=== PATIENT | female | born 1990 | race Caucasian/White ===

== ENCOUNTER → 2021-01-27 08:15 | Outpatient (BNVA) | payer OTHER, MEDICAID, SELFPAY | PROVIDERS: PCP Internal Medicine; Visit Provider Internal Medicine Gastroenterology ==

== ENCOUNTER 2021-01-28 15:30 | Outpatient (REF) | payer OTHER, SELFPAY ==
[2021-01-29 13:58] LABS: H Pylori Breath Test Negative (Negative)
== END 2021-01-28 15:31 | disposition home or self-care (01) ==
LOC: HO.LNP 15:30
PROVIDERS: Visit Provider Internal Medicine Gastroenterology
DX: Z11.0 Encounter for screening for intestinal infectious diseases (principal); K21.9 Gastro-esophageal reflux disease without esophagitis
CPT/HCPCS: 83013

== ENCOUNTER → 2021-01-30 10:16 | Outpatient (BNVA) | payer OTHER, MEDICAID, SELFPAY | PROVIDERS: Visit Provider Internal Medicine Gastroenterology ==

== ENCOUNTER 2021-02-04 11:58 | Outpatient (REF) | payer OTHER, MEDICAID, SELFPAY ==
[2021-02-04 12:34] LABS: MANUAL DIFF FLAG NO
[2021-02-04 12:38] LABS: Basophils Percent Auto 0.3 % (0-2); Eosinophils Absolute Auto 0.3 X10*3/uL (0.0-0.4); Eosinophils Percent Auto 4.5 % (0-4); Hematocrit 41.2 % (37-47); Hemoglobin 14.2 g/dl (12.0-16.0); Imm Gran Abs Auto 0.01 X10*3/uL (0.00-0.03); Imm Gran Pct Auto 0.2 % (0.0-0.4); Lymphocytes Absolute Auto 2.2 X10*3/uL (1.2-4.9); Lymphocytes Percent Auto 33.7 % (20-40); Mean Corpuscular HGB Conc 34.5 g/dl (31.0-35.0); Mean Corpuscular Hemoglobin 31.6 pg (27.0-33.0); Mean Corpuscular Volume 91.6 fL (80-98); Mean Platelet Volume 9.5 fL (9.4-12.3); Monocytes Absolute Auto 0.4 X10*3/uL (0.1-1.2); Neutrophils Absolute Auto 3.7 X10*3/uL (2.0-8.3); Neutrophils Percent Auto 55.3 % (45-73); Platelet Count 369 X10*3/uL (160-400); Red Cell Distribution Width 12.1 % (11.0-16.0); White Blood Count 6.6 X10*3/uL (4.8-10.8)
[2021-02-04 12:59] LABS: Alanine Aminotransferase 18 U/L (0-31); Albumin Level 4.5 g/dL (3.5-5.0); Alkaline Phosphatase 63 U/L (39-117); Anion Gap 12 (12-20); Aspartate Amino Transferase 15 U/L (5-31); Bilirubin Total 0.3 mg/dL (0.0-1.0); Blood Urea Nitrogen 14 mg/dL (9-16); Calcium 9.6 mg/dL (8.4-10.2); Carbon Dioxide 26 mmol/L (22-29); Chloride 105 mmol/L (96-108); Estimated Glomerular Filt Rate > 60; Glucose Random 91 mg/dL (60-115); Iron 55 mcg/dL (30-160); Percent Iron Saturation 13 % (15-50); Potassium 4.3 mmol/L (3.3-5.1); Sodium 139 mmol/L (135-145); Total Iron Binding Capacity 426 mcg/dL (228-428); Total Protein 7.3 g/dL (6.5-8.0); Unsaturated Iron Binding 371 ug/dL
[2021-02-04 13:20] LABS: Ferritin 27 ng/mL (10-122); TSH reflex Free T4 1.55 uIU/mL (0.32-4.0)
[2021-02-04 13:28] LABS: Vitamin B12 401 pg/mL (200-900)
== END 2021-02-04 11:59 | disposition home or self-care (01) ==
LOC: HO.LAB 11:58
PROVIDERS: Visit Provider Internal Medicine Gastroenterology
DX: K21.9 Gastro-esophageal reflux disease without esophagitis (principal); K62.5 Hemorrhage of anus and rectum; K75.81 Nonalcoholic steatohepatitis (NASH)
CPT/HCPCS: 36415; 80053; 82607; 82728; 82746; 83540; 84443; 85025

== ENCOUNTER 2021-02-12 07:01 | Day surgery (SDC) | payer OTHER, SELFPAY ==
--- NOTE | 2021-02-11 11:56 | HO.ANESPROP2 ---
Documented by User: Thea Hampton NP 02/11/21 12:05 HPI - Anesthesia Eval Consult details Narrative: 30yo F for ?Upper Endoscopy and Colonoscopy PMFSH Active Problems Active Problems: All Active Problems (Updated 01/30/21 @ 10:29 by Hellen Peña MD) Rectal bleeding (Acute) GERD (gastroesophageal reflux disease) (Acute) Past Medical History Medical History GERD (gastroesophageal reflux disease) Surgical History Surgical History S/P tonsillectomy Social History Social History Patient Tobacco Use Status: Never used Tobacco Use of substances other than those prescribed or required for medical reasons: No Are you DNR?: No Advance Directives: No Advance Directives Information Provided: Yes Meds Allergies Allergy/AdvReac Type Severity Reaction Status Date / Time sulfamethoxazole Allergy Unknown Unknown Verified 02/11/21 12:25 [From Bactrim] trimethoprim [From Bactrim] Allergy Unknown Unknown Verified 02/11/21 12:25 codeine AdvReac Vomiting Verified 02/11/21 12:25 Exam Exam Date and Time: February 11, 2021 1156 Pertinent Lab Results Pertinent Lab Results: Laboratory Tests 02/04/21 02/04/21 12:15 12:15 WBC 6.6 Hgb 14.2 Hct 41.2 Plt Count 369 Sodium 139 Potassium 4.3 Chloride 105 Carbon Dioxide 26 BUN 14 Creatinine 0.64 Assessment and Plan Assessment Anesthesia Assessment: Chart Reviewed Documented by User: Dhruv Mariscal MD 02/12/21 08:47 PMFSH Past Medical History Medical History GERD (gastroesophageal reflux disease) Family History Family history of problems with anesthesia: No Surgical History Surgical History S/P tonsillectomy History of Problems with Anesthesia: No Social History Social History Patient Tobacco Use Status: Never used Tobacco Use of substances other than those prescribed or required for medical reasons: No Are you DNR?: No Advance Directives: No Advance Directives Information Provided: Yes Meds Allergies Allergy/AdvReac Type Severity Reaction Status Date / Time sulfamethoxazole Allergy Unknown Unknown Verified 02/11/21 12:25 [From Bactrim] trimethoprim [From Bactrim] Allergy Unknown Unknown Verified 02/11/21 12:25 codeine AdvReac Vomiting Verified 02/11/21 12:25 Exam Airway Mallampati Class: I TM Dist: >3cm Neck ROM: Full Loose/Missing/Broken Teeth: No Assessment and Plan Assessment Anesthesia Assessment: Anesthesia Plan Discussed Final Anesthetic Review Family History of Problems with Anesthesia: No History of Problems with Anesthesia: No NPO: Yes ASA Class: II Final Preanesthetic Review: No Changes in Pt Med Stat, Meds/Allgs Chart Reviewed, Consent Obtained/Reviewed and Anes Risks/Benef Reviewed Patient Risk: Intermediate Procedure Risk: Low Anesthetic Plan Anesthetic Plan: MAC: Disposition: Standard PACU
[2021-02-12 07:24] LABS: UPreg QC Valid YES
[2021-02-12 07:25] LABS: Urine Pregnancy NEGATIVE (NEGATIVE)
[2021-02-12 07:30] VITALS: BP 116/83; PULSE 77; RESP 16; TEMP 36.6; O2SAT 98; BMI 38.1
[2021-02-12] MEDS: Lactated Ringers 1,000 ML 100 ML IVCONT (07:39)
--- NOTE | 2021-02-12 08:18 | MHC.SHP ---
Pre-Procedural Eval Section A Date of Service: 02/12/21 Section B Chief Complaint: reflux disease Relevant Family History (Specify if Yes): No Relevant Social History: None Present Medications: see Short Stay Collaborative assessment Medical History: Significant History History of Previous Operations: Relevant previous surgery/procedure and date(s) (tonisl removal) Allergies: Allergies Allergy/AdvReac Type Severity Reaction Status Date / Time sulfamethoxazole Allergy Unknown Unknown Verified 02/11/21 12:25 [From Bactrim] trimethoprim [From Bactrim] Allergy Unknown Unknown Verified 02/11/21 12:25 codeine AdvReac Vomiting Verified 02/11/21 12:25 Review of Systems Sugical H&P ROS: Negative: Constitution, Cardiovascular, Respiratory, Neurological, Psychiatric, Hem-Onc, Allergic/Immunologic, Gastrointestinal, Genitourinary, Musculoskeletal, Integumentary, Endocrine and Eyes/Ears/Nose/Throat Exam Surgical H&P Exam: Normal: HEENT, Normal: Heart, Normal: Lungs, Normal: Extremities, Normal: Abdomen, Normal: Skin and Normal: Neurological Plan Diagnosis/Plan: Unchanged I have reviewed the history and physical and performed a pertinent physical examination on my patient. No changes have occurred unless specified.
--- NOTE | 2021-02-12 08:19 | P.BOP_ITS ---
Brief Operative Note Date of Service: 02/12/21 Pre-op diagnosis: rectal bleeding, GERD Post-op diagnosis: same Surgeon: Hellen Peña MD Was an Timber Cruiser used for this Procedure?: No Estimated blood loss (mL): 5
--- NOTE | 2021-02-12 08:20 | W.PM.OPN ---
Operative Note Operative Note Date of Service: 02/12/21 Narrative: Operative Information Procedure Description: EGD, Colonoscopy FLEXIBLE TRANSORAL UPPER GASTROINTESTINAL ENDOSCOPY AND COLONOSCOPY PROCEDURE NOTE UPPER ENDOSCOPY Consent: Indications for the procedure and potential complications of bleeding, perforation, reaction to medications and missed diagnosis were discussed with the patient and informed consent was obtained. Instrument: Olympus GIF H 190 J mid size upper endoscope Monitoring: Vital signs and clinical assessment, continuous EKG monitoring, Pulse oximetry, Carbon Dioxide monitoring and blood pressure monitoring were done throughout the procedure. Procedure: The patient was placed in the left lateral decubitis position and pre-procedure medications were administered and a bite block was placed. The endoscope was inserted into the mouth and advanced under direct vision to the third part of duodenum. A careful inspection was made as the upper endoscope was withdrawn including a retroflexed examination of the proximal stomach; Findings and interventions are described below. Findings: Larynx:normal Esophagus: GE junction at 40 cm, diaphragm hiatus at 40 cm, boggy, edematous nodular appearing GEJ consistent with moderate severe LA grade A esophagitis with tongues of possible barretts esophagus. Their was trachealization of esophagus, bx taken from distal and proximal esophagus in separate jars as well as GEJ. Stomach: Normal mucosa. Biopsies were obtained. Grade 2 flap valve on retroflexed examination of the cardia. Duodenum: Normal bulb and descending duodenum, bx taken Intervention: Biopsies as noted above COLONOSCOPY Instrument: Olympus variable stiffness pediatric scope 190L Colonoscopy Monitoring: Vital signs and clinical assessment, continuous EKG monitoring, Pulse oximetry, Carbon Dioxide monitoring and blood pressure monitoring were done throughout the procedure. Colon withdrawal time was 8 minutes. Procedure: The patient was placed in the left lateral decubitis position and pre-procedure medications were administered. After a digital rectal examination of the ano-rectum, the video colonoscope was inserted into the rectum and advanced through the colon to the cecum/TI. The colonoscope was slowly withdrawn in a retrograde panoramic fashion and the colon mucosa was carefully examined including a retroflexed view of the rectum. Findings and interventions are described below. Procedure Difficulty:easy Findings: Terminal Ileum-normal Cecum:normal Ascending Colon: normal Transverse Colon -normal Descending Colon:normal Sigmoid Colon: normal Rectum: Retroflexion with small internal hemorrhoids, grade II Anorectum - small internal hemorrhoids seen on anterior view with some red bundy Colon preparation: [place] Bowel Preparation Scale Right colon; 3 Transverse colon: 3 Left colon; 3 (0 = Unprepared colon segment with mucosa not seen due to solid stool that cannot be cleared. 1 = Portion of mucosa of the colon segment seen, but other areas of the colon segment not well seen due to staining, residual stool and/or opaque liquid. 2 = Minor amount of residual staining, small fragments of stool and/or opaque liquid, but mucosa of colon segment seen well. 3 = Entire mucosa of colon segment seen well with no residual staining, small fragments of stool or opaque liquid) Impression and Post Procedure Diagnosis: Endoscopy Findings: esophagitis possible barretts esophagus Colonoscopy Findings: internal hemorrhoids Plan: Await Pathology results Repeat Colonoscopy aged 45 years or earlier if clinically indicated High fiber diet leaflet avoid straining at stool, epsom salts and sitz bath, anusol supps or cream high dose PPI for 3 months and repeat EGD to dcoument healing Above findings were reviewed with the patient and relevant handouts were provided if indicated.
[2021-02-12 09:00] VITALS: BP 116/77; PULSE 84; RESP 20; TEMP 36.7; O2SAT 99
[2021-02-12 09:15] VITALS: BP 124/80; PULSE 78; RESP 18; TEMP 36.7; O2SAT 96
== END 2021-02-12 09:47 | disposition home or self-care (01) ==
PROVIDERS: Nurse Practitioner; PCP Internal Medicine; Visit Provider Internal Medicine Gastroenterology
PROC: (CPT 45378; principal; 2021-02-12 08:00)
DX: K62.5 Hemorrhage of anus and rectum (principal); K64.1 Second degree hemorrhoids; K64.8 Other hemorrhoids; K21.00 Gastro-esophageal reflux disease with esophagitis, without bleeding; K29.80 Duodenitis without bleeding; D50.9 Iron deficiency anemia, unspecified
CPT/HCPCS: 45378; 43239; 81025; 88305; 88342

== ENCOUNTER 2021-03-17 13:35 | Outpatient (REF) | payer OTHER, SELFPAY ==
[2021-03-17 14:46] LABS: Iron 45 mcg/dL (30-160); Percent Iron Saturation 12 % (15-50); Total Iron Binding Capacity 380 mcg/dL (228-428); Unsaturated Iron Binding 335 ug/dL
[2021-03-17 15:18] LABS: Ferritin 36 ng/mL (10-122)
[2021-03-20 07:41] LABS: Zinc 65 mcg/dL (60-130)
== END 2021-03-17 13:36 | disposition home or self-care (01) ==
LOC: HO.LAB 13:35
PROVIDERS: Visit Provider Internal Medicine Gastroenterology
DX: E61.1 Iron deficiency (principal)
CPT/HCPCS: 36415; 82728; 83540; 84630

== ENCOUNTER 2021-11-26 15:07 | Outpatient (REF) | payer OTHER, SELFPAY ==
[2021-11-26 15:33] LABS: MANUAL DIFF FLAG NO
[2021-11-26 16:07] LABS: Basophils Percent Auto 0.4 % (0-2); Eosinophils Absolute Auto 0.1 X10*3/uL (0.0-0.4); Eosinophils Percent Auto 1.4 % (0-4); Hematocrit 39.3 % (37.0-47.0); Hemoglobin 13.3 g/dl (12.0-16.0); Imm Gran Abs Auto 0.04 X10*3/uL (0.00-0.03); Imm Gran Pct Auto 0.6 % (0.0-0.4); Lymphocytes Absolute Auto 2.3 X10*3/uL (1.2-4.9); Lymphocytes Percent Auto 32.5 % (20-40); Mean Corpuscular HGB Conc 33.8 g/dl (31.0-35.0); Mean Corpuscular Hemoglobin 30.2 pg (27.0-33.0); Mean Corpuscular Volume 89.3 fL (80.0-98.0); Mean Platelet Volume 9.8 fL (9.4-12.3); Monocytes Absolute Auto 0.5 X10*3/uL (0.1-1.2); Neutrophils Absolute Auto 4.1 x10*3/uL (2.0-8.3); Neutrophils Percent Auto 58.1 % (45-73); Platelet Count 400 X10*3/uL (160-400); Red Cell Distribution Width 13.2 % (11.0-16.0)
[2021-11-26 16:25] LABS: Alanine Aminotransferase 20 U/L (0-31); Albumin Level 4.8 g/dL (3.5-5.0); Alkaline Phosphatase 63 U/L (39-117); Anion Gap 16 (12-20); Aspartate Amino Transferase 17 U/L (5-31); Bilirubin Total 0.7 mg/dL (0.0-1.0); Blood Urea Nitrogen 11 mg/dL (9-16); Calcium 9.4 mg/dL (8.4-10.2); Carbon Dioxide 25 mmol/L (22-29); Chloride 103 mmol/L (96-108); Estimated Glomerular Filt Rate > 60; Glucose Random 99 mg/dL (60-115); Potassium 3.7 mmol/L (3.3-5.1); Sodium 140 mmol/L (135-145); Total Protein 7.7 g/dL (6.5-8.0)
[2021-11-26 16:29] LABS: Appearance Urine CLEAR; Color Urine YELLOW; Glucose Urine UA NEG (NEG); Leukocyte Esterase Urine NEG (NEG); Nitrite Urine NEG (NEG); PH 5.5 (5.0-8.0); Specific Gravity - Urine >= 1.030 (1.005-1.025); Urine Blood NEG (NEG); Urine Ketones 5 MG/DL (NEG); Urine Protein TRACE MG/DL (NEG-TRACE)
== END 2021-11-26 15:08 | disposition home or self-care (01) ==
LOC: HO.LAB 15:07
PROVIDERS: Visit Provider Internal Medicine Gastroenterology
DX: R30.0 Dysuria (principal); K75.81 Nonalcoholic steatohepatitis (NASH); K80.20 Calculus of gallbladder without cholecystitis without obstruction
CPT/HCPCS: 36415; 80053; 81003; 85025

== ENCOUNTER 2021-11-27 08:25 | Outpatient (REF) | payer OTHER, SELFPAY ==
--- NOTE | ~2021-11-27 | US_ITS ---
EXAMINATION: US ABDOMEN COMPLETE CLINICAL INFORMATION: Calculus of gallbladder without cholecystitis, abdominal pain, nausea. COMPARISON: None TECHNIQUE: Real-time imaging of the abdominal viscera. FINDINGS: PANCREAS: Normal. ABDOMINAL AORTA: The proximal, mid, and distal segments are normal in caliber. INFERIOR VENA CAVA: Visualized portions are normal. LIVER: Normal. The liver is normal in size. The liver contour is normal. Parenchymal echogenicity is normal. No focal hepatic lesion. There is no intrahepatic biliary duct dilatation seen. GALLBLADDER: Normal. The gallbladder is physiologically distended without evidence of stones, sludge, polyps, wall thickening or pericholecystic fluid. COMMON BILE DUCT: Normal in caliber measuring 0.3 cm in diameter. There is an fluid-filled structure adjacent to the gallbladder and neck of the pancreas in the region of the jefry without internal vascularity or soft tissue nodularity. While difficult to evaluate this does correspond with the expected region of the duodenum. RIGHT KIDNEY: Normal. No hydronephrosis. No renal calculi or focal parenchymal lesions. The kidney measures 11.8 cm in maximum dimension. LEFT KIDNEY: Normal. No hydronephrosis. No renal calculi or focal parenchymal lesions. The kidney measures 11.9 cm in maximum dimension. SPLEEN: Normal. The spleen measures 10.3 cm in maximum dimension. FREE FLUID: None. US/US abdomen complete IMPRESSION: Fluid-filled structure in the region of the jefry as noted above which is adjacent to portal structures, gallbladder, and the neck of the pancreas. While the structure is somewhat difficult to fully evaluate given the limitations of modality, I suspect this may relate to fluid within the duodenum or small amount of free fluid in the region of the jefry. Considerations could also include a duodenal diverticulum or other process. Further evaluation with upper GI series or cross-sectional imaging could be considered.
== END 2021-11-27 08:26 | disposition home or self-care (01) ==
LOC: HO.US 08:25
PROVIDERS: Visit Provider Internal Medicine Gastroenterology
DX: K80.20 Calculus of gallbladder without cholecystitis without obstruction (principal)
CPT/HCPCS: 76700

== ENCOUNTER 2022-04-30 12:53 | Outpatient (REF) | payer OTHER, SELFPAY ==
[2022-04-30 13:20] LABS: MANUAL DIFF FLAG NO
[2022-04-30 13:44] LABS: Basophils Percent Auto 0.4 % (0-2); Eosinophils Absolute Auto 0.3 X10*3/uL (0.0-0.4); Eosinophils Percent Auto 3.6 % (0-4); Hematocrit 39.8 % (37.0-47.0); Hemoglobin 13.3 g/dl (12.0-16.0); Imm Gran Abs Auto 0.02 X10*3/uL (0.00-0.03); Imm Gran Pct Auto 0.3 % (0.0-0.4); Lymphocytes Absolute Auto 2.4 X10*3/uL (1.2-4.9); Lymphocytes Percent Auto 33.1 % (20-40); Mean Corpuscular HGB Conc 33.4 g/dl (31.0-35.0); Mean Corpuscular Hemoglobin 30.6 pg (27.0-33.0); Mean Corpuscular Volume 91.7 fL (80.0-98.0); Mean Platelet Volume 9.6 fL (9.4-12.3); Monocytes Absolute Auto 0.4 X10*3/uL (0.1-1.2); Monocytes Percent Auto 4.8 % (2-11); Neutrophils Absolute Auto 4.2 x10*3/uL (2.0-8.3); Neutrophils Percent Auto 57.8 % (45-73); Platelet Count 359 X10*3/uL (160-400); Red Blood Count 4.34 X10*6/uL (4.20-5.50); Red Cell Distribution Width 13.1 % (11.0-16.0); White Blood Count 7.3 X10*3/uL (4.8-10.8)
[2022-04-30 14:22] LABS: Erythrocyte Sedimentation Rate 12 MM/HR (0-20)
[2022-04-30 14:29] LABS: Alanine Aminotransferase 20 U/L (0-31); Albumin Level 4.6 g/dL (3.5-5.0); Alkaline Phosphatase 61 U/L (39-117); Anion Gap 14 (12-20); Aspartate Amino Transferase 17 U/L (5-31); Bilirubin Total 0.6 mg/dL (0.0-1.0); Blood Urea Nitrogen 14 mg/dL (9-16); C Reactive Protein 0.22 mg/dL (< or = 0.50); Calcium 9.8 mg/dL (8.4-10.2); Carbon Dioxide 30 mmol/L (22-29); Chloride 101 mmol/L (96-108); Estimated Glomerular Filt Rate > 60; Ferritin 18 ng/mL (10-122); Glucose Random 117 mg/dL (60-115); Iron 53 mcg/dL (30-160); Magnesium 1.8 mg/dL (1.6-2.6); Percent Iron Saturation 14 % (15-50); Potassium 3.7 mmol/L (3.3-5.1); Sodium 141 mmol/L (135-145); TSH reflex Free T4 1.32 uIU/mL (0.32-4.0); Total Iron Binding Capacity 367 mcg/dL (228-428); Total Protein 7.3 g/dL (6.5-8.0); Unsaturated Iron Binding 314 ug/dL; Vitamin D 25-OH Total 10.1 ng/mL (>30)
[2022-04-30 14:53] LABS: Vitamin B12 334 pg/mL (200-900)
[2022-04-30 15:08] LABS: Folate 8.4 ng/mL (> or = 4.0)
[2022-05-04 10:34] LABS: Anti Nuclear Antibody Screen NEGATIVE (NEGATIVE)
[2022-05-04 17:58] LABS: Zinc 81 mcg/dL (60-130)
[2022-05-05 15:44] LABS: Vitamin C 1.1 mg/dL (0.3-2.7)
[2022-05-05 21:18] LABS: Alpha-Tocopherol 14.1 mg/L (5.7-19.9); Beta-Gamma Tocopherol 1.8 mg/L (<=4.3)
[2022-05-05 21:28] LABS: Vitamin A 44 mcg/dL (38-98)
[2022-05-05 23:09] LABS: Vitamin K1 1100 pg/mL (130-1500)
[2022-05-06 14:52] LABS: Vitamin B6 19.5 ng/mL (2.1-21.7)
[2022-05-06 15:37] LABS: Vitamin B1 13 nmol/L (8-30)
[2022-05-06 15:59] LABS: Nicotinamide 21 ng/mL; Vit B3 - Nicotinic Acid <20 ng/mL
[2022-05-06 22:57] LABS: Vitamin B5 (Pantothenic Acid) 49 ng/mL (<275)
== END 2022-04-30 12:54 | disposition home or self-care (01) ==
LOC: HO.LAB 12:53
PROVIDERS: Visit Provider Internal Medicine Gastroenterology
DX: K62.5 Hemorrhage of anus and rectum (principal); K75.81 Nonalcoholic steatohepatitis (NASH); R79.82 Elevated C-reactive protein (CRP); E61.1 Iron deficiency
CPT/HCPCS: 36415; 80053; 82180; 82306; 82607; 82728; 82746; 83540; 83735; 84207; 84425; 84443; 84446; 84590; 84591; 84597; 84630; 85025; 85652; 86038; 86039; 86140

== ENCOUNTER 2022-11-02 13:12 | Outpatient (REF) | payer OTHER, SELFPAY ==
[2022-11-03 04:09] LABS: Syphilis Screen Nonreactive (Nonreactive)
[2022-11-03 04:28] LABS: HBS Num1 82.76 mIU/mL (0-7.99); HBc Num1 0.18 S/CO (0.00-0.79); HBsAGNum1 0.43 S/CO (0.00-0.99); HIV AB/AG Nonreactive (Nonreactive); HIV Num 1 0.08 S/CO (0.00-0.99); Hepatitis A Antibody IgM 0.26 Index (0-0.79); Hepatitis B Core Antibody Nonreactive (Nonreactive); Hepatitis B Surface Antigen Negative (Negative); ~HepC Num1 0.09 S/CO (0.00-0.79); ~Hepatitis A Antibody IgM Nonreactive (Nonreactive); ~Hepatitis B Surface Antibody REACTIVE (Nonreactive); ~Hepatitis C Antibody Nonreactive (Nonreactive)
[2022-11-05 15:13] LABS: HIV RNA PCR Qn Copies NOT DETECTED copies/mL (NOT DETECTED); HIV RNA PCR Qn Log Copies NOT DETECTED (NOT DETECTED)
[2022-11-05 15:28] LABS: HCV Log PCR <1.18 NOT DETECTED Log IU/mL (NOT DETECTED); HepC Viral Load <15 NOT DETECTED IU/mL (NOT DETECTED)
== END 2022-11-02 13:13 | disposition home or self-care (01) ==
LOC: HO.LAB 13:12
PROVIDERS: Visit Provider Internal Medicine Gastroenterology
DX: A64 Unspecified sexually transmitted disease (principal)
CPT/HCPCS: 36415; 86704; 86706; 86709; 86780; 86803; 87340; 87389; 87522; 87536

== ENCOUNTER 2023-01-07 06:06 | Outpatient (REF) | payer OTHER, SELFPAY ==
[2023-01-07 09:17] LABS: Glucose Fasting 89 mg/dL (60-99)
[2023-01-07 10:57] LABS: Glucose 1 Hour 209 mg/dL
[2023-01-07 12:10] LABS: Glucose 2 Hour 156 mg/dL
[2023-01-07 14:39] LABS: Glucose 3 Hour 49 mg/dL
== END 2023-01-07 06:07 | disposition home or self-care (01) ==
LOC: HO.LAB 06:06
PROVIDERS: Advanced Practice Midwife; PCP Internal Medicine; Visit Provider Registered Nurse
DX: R73.09 Other abnormal glucose (principal)
CPT/HCPCS: 36415; 82951

== ENCOUNTER 2023-12-30 13:06 | Emergency (ER) | payer OTHER, SELFPAY ==
[2023-12-30] VITALS (7 sets, daily range): BP systolic 134–147; BP diastolic 91–99; PULSE 67–98; RESP 16–20; TEMP 36.1–36.8; O2SAT 97–99; BMI 36.5
--- NOTE | ~2023-12-30 | XR_ITS ---
EXAMINATION: XR HIP, RIGHT CLINICAL INFORMATION: Right hip pain COMPARISON: None available. TECHNIQUE: Two views of the right hip, frontal x-ray of the pelvis. FINDINGS: BONES: Bony structures are intact. There is no focal bone destruction or periosteal reaction seen. JOINTS: Alignment of hip joint is normal. SOFT TISSUE: Soft tissue is normal. No radiopaque foreign body or abnormal air collection is seen. XR/XR hip RT w [id number] IMPRESSION: 1. Normal pelvis x-ray. No fracture or dislocation is seen. 2. Normal x-ray of right hip. No fracture or dislocation or signs of avascular necrosis are seen.
--- NOTE | 2023-12-30 13:27 | ED_ITS ---
HPI - Extremity Injury (Lower) General Chief Complaint: Extremity Problem Stated Complaint: Hip pain Time Seen by Provider: 12/30/23 16:15 Source: patient and RN notes reviewed Mode of arrival: ambulatory Limitations: no limitations History of Present Illness ED Provider: Vickie Castaneda PA-C HPI Narrative: This is a 33-year-old female who presents emergency department with complaints of right-sided hip pain x2 weeks. Patient denies any recent trauma or injury. She states that her pain has worsened over the last 2 weeks. She states that her symptoms are intermittent in nature, however pain became much more severe. She tried naproxen as well as diclofenac without any relief. She states that the pain radiates down into her buttock and into her groin. Denies any urinary bowel incontinence or retention. No saddle anesthesia. Pain worsens with positional changes. No fevers or chills. No abdominal pain, nausea, vomiting or diarrhea. No chest pain. No other complaints or concerns at this time. Onset (ago): week(s) Severity: severe Relieving factors: nothing Exacerbating factors: movement Other symptoms: none Related Data Previous Rx's ?Medication ?Instructions ?Recorded bisacodyl 5 mg tablet,delayed 10 mg (2 x 5 mg) PO ONCE 1 day #2 01/30/21 release (Dulcolax (bisacodyl)) tabs sodium,potassium,mag sulfates 17.5 See Rx Instructions PO .COMPLEX 01/30/21 gram-3.13 gram-1.6 gram oral soln #354 mL (Suprep Bowel Prep Kit) amoxicillin 500 mg capsule 500 mg PO TID #21 caps 05/26/22 omeprazole 40 mg capsule,delayed 40 mg PO BID #90 caps 09/07/22 release cyclobenzaprine 10 mg tablet 10 mg PO BEDTIME PRN muscle spasm 12/30/23 #7 tabs hydromorphone 2 mg tablet 2 mg PO Q6H PRN pain #10 tabs 12/30/23 ketorolac 10 mg tablet 10 mg PO TID PRN pain 5 days #15 12/30/23 tabs lidocaine 5 % topical patch 1 patch topical DAILY PRN pain #15 12/30/23 ea Allergies Allergy/AdvReac Type Severity Reaction Status Date / Time sulfamethoxazole Allergy Unknown Unknown Verified 12/30/23 13:32 [From Bactrim] trimethoprim [From Bactrim] Allergy Unknown Unknown Verified 12/30/23 13:32 codeine AdvReac Vomiting Verified 12/30/23 13:32 Review of Systems Review of Systems: Yes all other systems are reviewed and are negative Constitutional: Constitutional: Reports as per [facility] Past Medical History Medical History GERD (gastroesophageal reflux disease) Surgical History S/P tonsillectomy Social History Social History Patient Tobacco Use Status: Never used Tobacco Smoked in Last 30 Days: No Use of substances other than those prescribed or required for medical reasons: No Advance Directives: No Advance Directives Information Provided: No Do you have a plan to hurt others: No Plan Patient : No Physical Exam Vital Signs: Vital Signs: Last Vital Signs Temp 98.3 F 12/30/23 22:46 Pulse 84 12/30/23 22:46 Resp 16 12/30/23 22:46 BP 144/99 H 12/30/23 22:46 Pulse Ox 97 12/30/23 22:46 O2 Del Method Room Air 12/30/23 22:46 BMI result Body Mass Index 36.5 Const: General: cooperative, comfortable and no acute distress Orientation/consciousness: patient oriented x3 Limitations: no limitations HEENT: Head: Yes normal to inspection, Yes normocephalic and Yes atraumatic Ears: hearing grossly normal bilaterally General nose exam: Normal external nose present Face and sinus: Yes normal facial exam Mouth: Normal oral and palatal mucosa present, oropharynx normal and moist mucous membranes Throat: Yes posterior oropharynx normal Eyes: General: appearance normal, both eyes and all related structures Eyelids: Yes eyelids normal Conjunctivae: conjunctivae normal Sclerae: sclerae normal Pupils: Equal, round and reactive pupils present EOM: EOMs intact bilaterally Neck: Neck: Yes normal visual inspection, Yes full ROM and Yes no lymphade nopathy Lymphatic: no lymphadenopathy noted Chest: Chest palpation & inspection: normal inspection of the chest Resp: Effort & Inspection: normal respiratory effort and able to speak in complete sentences Auscultation: clear to auscultation bilaterally, no crackles, no rales, no rhonchi and no wheezes Cardio: Rate: regular rate Rhythm: regular rhythm Heart sounds: S1 normal heart sound present and S2 normal heart sound present GI: Inspection: Yes normal to inspection Back/Spine/Pelvis: Other: No midline spine tenderness, patient has tenderness palpation along the right buttock and right SI joint. Strength 5/5 in lower extremities. DTR 2+ Skin: General skin exam: no rashes or lesions noted Trauma: no lacerations or abrasions Wounds: no wounds Neuro: General: patient oriented x3 and moves all extremities Cranial nerves: Yes Equal, round and reactive pupils present Extrem: General: Yes normal to inspection Right upper extremity: normal to inspection Left upper extremity: normal to inspection Right lower extremity: normal to inspection Left lower extremity: normal to inspection Course Course Course Narrative: This is a Rapid Medical Exam performed in triage by oSo Ventura PA-C. Full HPI, ROS and PE to be performed by primary ED provider. 33 year-old F w/PMHx GERD, sciatica, presenting to the ED c/o right hip pain x 1 mos worsening since last night. Admits needed 2 blood patches after having her daughter in May (last 05/26) & this pain feels similar. denies injury, fall, urinary sx PE: uncomfortable, limping gait, +reproducible R hip/low back ttp. no rash/erythema Plan: XR, UA Reevaluation(s) Reevaluation #1: Patient tearful, reporting that pain does not any better, patient will be medicated with morphine 4 mg IV. We will continue to closely monitor. Time: 18:23 Reevaluation #2: Patient re-evaluated, feeling better however still endorsing pain, patient medicated with Lidoderm patch. Sign out given to my colleague, Rashad Claros PA-C pending re-evaluation. Time: 19:16 Reevaluation #3: Patient was still in a lot of pain Dilaudid ordered. She tried to get up and still in pain. Patients pain is clearly precipitated by movement and improved by rest. Supporting MSK dx. I do not suspect acute torsion, or NV compromise or threat to limb . No signs of cord compressions Time: 22:32 Medications Administered Discontinued Medications Generic Name Dose Route Start Last Admin Trade Name Jake PRN Reason Stop Dose Admin Diazepam 2 mg 12/30/23 16:27 12/30/23 16:33 Diazepam 2 Mg Tablet PO 12/30/23 16:28 2 mg ONCE ONE Administration Hydromorphone HCl 2 mg 12/30/23 21:45 12/30/23 21:53 Hydromorphone Hcl 2 Mg Tablet PO 12/30/23 21:46 2 mg ONCE ONE Administration Ketorolac Tromethamine 30 mg 12/30/23 16:27 12/30/23 16:34 Ketorolac Tromethamine 30 Mg/Ml Vial IM 12/30/23 16:28 30 mg ONCE ONE Administration Lidocaine 1 patch 12/30/23 18:39 12/30/23 18:43 Lidocaine 4 % Patch Adh..Patch TRANSDERMA 12/30/23 18:40 1 patch ONCE ONE Administration Protocol Morphine Sulfate 4 mg 12/30/23 18:02 12/30/23 18:20 Morphine Sulfate 4 Mg/Ml Cartridge IVPUSH 12/30/23 18:03 4 mg ONCE ONE Administration Protocol Medical Decision Making Medical Decision Making [facility] Narrative: This is a 33-year-old female who presents emergency department with complaints of right-sided hip pain and buttock pain ongoing for the last 2 weeks, worsening today. No injury or trauma. No fevers or chills. This patient presents with back pain most consistent with lumbar radiculopathy. Differential diagnoses includes lumbago versus musculoskeletal spasm / strain versus sciatica. No back pain red flags on history or physical. Presentation not consistent with malignancy (lack of history of malignancy, lack of B symptoms), fracture (no trauma, no bony tenderness to palpation), cauda equina syndrome (no bowel or urinary incontinence/retention, no saddle anesthesia, no distal weakness), pyelonephritis (afebrile, no CVAT, no urinary symptoms). Prior to my assessment, urine analysis was obtained, she has no evidence of urinary tract in fection. Have been pelvis x-ray was ordered, which was normal. Will medicate with Valium and 30 mg IM Toradol. Differential Diagnosis Differential Diagnoses: The differential diagnosis associated with the presentation includes See above Admission/Observation Consideration of admission/observation: Escalation of care including admission/observation considered Escalation of care including admission/observation considered however given workup today not warranted at this time. Lab Data [facility] Lab Attestation statement: I reviewed the patient's lab results. Labs: Lab Results 12/30/23 Range/Units 13:41 Urine Color Yellow Urine Appearance Clear Urine pH 6.0 (5.0-9.0) Ur Specific [place] >= 1.030 H (1.005-1.025) Urine Protein 30 (1+) H (Neg-Trace) mg/dL Urine Glucose (UA) Negative (Negative) mg/dL Urine Ketones Trace (Negative) mg/dL Urine Blood Negative (Negative) Urine Nitrite Negative (Negative) Ur Leukocyte Esterase Negative (Negative) Urine RBC 0-2 (0-2) /HPF Urine WBC 6-10 H (0-5) /HPF Ur Squamous Epith Cells 3-5 (0-2) /HPF Urine Bacteria None Seen (None Seen) Hyaline Casts 0-2 (0-2) /LPF Urine Test NEGATIVE (NEGATIVE) Radiology Impression Discussion of test interpretation with radiology: I have reviewed the radiologist's reading. External Record Review External record reviewed: Inpatient record, Office record, Outpatient record, Prior outpatient labs, Prior outpatient radiology, Primary care record and Outside ED record Critical Care Time Critical Care Time Critical Care Time: Yes Total Critical Care Time: 35 Attestation: I attest to this time spent taking care of the patient, obtaining history, physical, reviewing labs, imaging, speaking to my attending, specialist or hospitalist. Discharge Plan Discharge Clinical Impression: Lumbar radiculopathy Patient Disposition: Home, Self-Care Instructions: Lumbar Radiculopathy (ED), Lower Back Exercises (ED) Additional Instructions: You were seen in the emergency department due to low back pain. Your x-rays were unremarkable. Please rest, ice or apply heat, alternate between ibuprofen and Tylenol as need ed for pain. Take prescribed medication as directed. If any new or worsening symptoms occur including but not limited to urinary or bowel retention or incontinence, weakness in her lower extremities, numbness and tingling into your groin, please immediately seek emergent care. A narcotic has been sent to your pharmacy please take this as prescribed. Do not take more than the prescribed dose. Narcotic medications can cause addiction. Please do not mix them with alcohol. Do not take them while driving or operating machinery. Do not take them with any other narcotics. Do not share them with friends or family. They can cause constipation. Take them only for severe pain. Cyclobenzaprine is a muscle relaxer it is strong and can make you drowsy. Do not take with sedatives or any other muscle relaxers or alcohol. Do not drive or operate machinery while taking this. Do not share this medication with anyone. Toradol has been sent to your pharmacy, you tolerated this well in the de partment. Please take this as prescribed do not take this with ibuprofen, or other NSAIDs, do not mix this with alcohol. Side effects of this medication including increased risk for bleeding and possible kidney injury. Prescriptions: New hydromorphone 2 mg tablet 2 mg PO Q6H PRN (Reason: pain) Qty: 10 0RF Rx Instructions: Partial Fill upon patient request. cyclobenzaprine 10 mg tablet 10 mg PO BEDTIME PRN (Reason: muscle spasm) Qty: 7 0RF ketorolac 10 mg tablet 10 mg PO TID PRN (Reason: pain) 5 Days Qty: 15 0RF lidocaine 5 % adhesive patch,medicated 1 patch topical DAILY PRN (Reason: pain) Qty: 15 0RF Rx Instructions: leave on most painful area for up to 12 hrs No Action bisacodyl [Dulcolax (bisacodyl)] 5 mg tablet,delayed release (DR/EC) 10 mg PO ONCE 1 Days Qty: 2 0RF Rx Instructions: take orally as directed prior to colonoscopy amoxicillin 500 mg capsule 500 mg PO TID Qty: 21 0RF omeprazole 40 mg capsule,delayed release(DR/EC) 40 mg PO BID Qty: 90 2RF Suprep Bowel Prep Kit 17.5-3.13-1.6 gram recon soln See Rx Instructions PO .COMPLEX Qty: 354 0RF Rx Instructions: DILUTE; Referrals: [facility] [Provider Group] - 2 days Physician,None [Primary Care Provider] - 2 days Stand Alone Forms: Work/School Release Interventions: ED Discharge Assessment Last Done: 12/30/23 22:46 Discharge Date/Time: 12/30/23 22:47 Print Language: Ghanaian
[2023-12-30 13:49] LABS: Appearance Urine Clear; Color Urine Yellow; Glucose Urine UA Negative (Negative); Leukocyte Esterase Urine Negative (Negative); Nitrite Urine Negative (Negative); Specific Gravity - Urine >= 1.030 (1.005-1.025); UMIC TRIGGER UACC YES; Urine Blood Negative (Negative); Urine Ketones Trace mg/dL (Negative); Urine Protein 30 (1+) mg/dL (Neg-Trace)
[2023-12-30 13:51] LABS: Bacteria Urine None Seen (None Seen); Hyaline Casts Urine 0-2 /LPF (0-2); RBC Urine 0-2 /HPF (0-2); UACC Culture Trigger YES; UPreg QC Valid YES; Urine Pregnancy NEGATIVE (NEGATIVE)
[2023-12-30] MEDS: diazePAM 2 MG TABLET PO (16:33)
[2023-12-30] MEDS: Ketorolac Tromethamine 30 MG/ML VIAL IM (16:34)
[2023-12-30] MEDS: Morphine Sulfate 4 MG/ML CARTRIDGE IVPUSH (18:20)
[2023-12-30] MEDS: Lidocaine 4 % Patch ADH..PATCH 1 PATCH TRANSDERMA (18:43)
--- NOTE | 2023-12-30 20:53 | PC.NURSE ---
pt initially reporting some improvement in pain after morphine, however pain returned shortly after to a 10/10. provider aware.
[2023-12-30] MEDS: HYDROmorphone HCl 2 MG TABLET PO (21:53)
== END 2023-12-30 22:47 | disposition home or self-care (01) ==
PROVIDERS: Physician Assistant; Emergency Provider Emergency Medicine
DX: M54.16 Radiculopathy, lumbar region (principal); M54.50 Low back pain, unspecified
CPT/HCPCS: 73502; 81001; 81025; 87086; 96372; 96374; 99284; J1885; J2270

== ENCOUNTER 2024-01-29 09:10 | Outpatient (REF) | payer OTHER, SELFPAY ==
--- NOTE | ~2024-01-29 | MR_ITS ---
EXAMINATION: MR HIP WITHOUT CONTRAST, LEFT CLINICAL INFORMATION: Left hip pain, throbbing, stabbing. Increasing throughout the day. Tenderness. Evaluate for bursitis. COMPARISON: None available. TECHNIQUE: MRI of the left hip was obtained using routine sequences on a high-field magnet. FINDINGS: ACETABULAR LABRUM: No displaced labral tear. ARTICULAR CARTILAGE/BONE: Intact articular cartilage. No marrow edema or evidence of osseous injury. No stress reaction, fracture, or avascular necrosis. No concerning lytic or blastic osseous lesion. The acetabular depth is within normal limits. MUSCLES/TENDONS: Minimal gluteus medius and gluteus minimus tendinosis. No tendon tear or tendon retraction. JOINT FLUID/BURSA: Trace fluid and edema within the greater trochanteric bursa, consistent with mild bursitis. No joint effusion. INTRAPELVIC STRUCTURES: Unremarkable. MR/MR hip LT wo con IMPRESSION: 1. Mild greater trochanteric bursitis. 2. Minimal gluteus medius and gluteus minimus tendinosis without a measurable tendon tear. 3. No acute osseous abnormality. No stress reaction, fracture, or avascular necrosis. Electronically signed by: Preston Sharp MD 01/31/2024 09:38 AM EDT
--- NOTE | ~2024-01-29 | MR_ITS ---
EXAMINATION: MR HIP WITHOUT CONTRAST, RIGHT CLINICAL INFORMATION: Pain in the right hip. COMPARISON: X-ray of the right hip and pelvis December 2023. TECHNIQUE: MRI of the right hip was obtained using routine sequences on a high-field strength magnet. FINDINGS: BONES/CARTILAGE: Right Hip Joint: Articular Cartilage and Marrow: Normal. No bony excrescence or cystic change at the femoral head-neck junction. No effusion. Limited views of the bony pelvis. Remaining bone and joints are unremarkable. LABRUM/CAPSULE: There is a slightly lobulated paralabral cyst abutting the posterior labrum as seen on axial image 17 series 9. There is a tiny focus of increased signal within the periphery of the labrum. Findings most compatible with a nondisplaced labral tear with associated paralabral cyst. The cyst measures 13 mm transverse, 7 mm AP, and 12 mm craniocaudal. The remaining portions of the labrum are unremarkable. MUSCLE/TENDONS: Normal. BURSA: Normal. NEUROVASCULAR STRUCTURES: Normal. SUBCUTANEOUS SOFT TISSUES: Normal. LYMPH NODES: Normal. MISCELLANEOUS: Intrapelvic viscera and soft tissues are normal. MR/MR hip RT wo con IMPRESSION: Nondisplaced tear of the posterior labrum with associated paralabral cyst. Electronically signed by: Kaiser Peña MD 01/31/2024 11:12 AM EDT
== END 2024-01-29 09:11 | disposition home or self-care (01) ==
LOC: HO.MRI 09:10
PROVIDERS: Visit Provider Internal Medicine Gastroenterology
DX: M25.551 Pain in right hip (principal); M25.562 Pain in left knee
CPT/HCPCS: 73721

== ENCOUNTER 2025-02-13 10:38 | Outpatient (AMB) | payer OTHER, SELFPAY ==
--- OUTSIDE RECORDS SUMMARY | 2025-02-12 15:15 | XMS_ITS | Encounter Summary ---
Author Organization [facility] Address [address] [place] [address] Care Team Providers Care Professor Of Archaeology Name Role Phone Ayo Ndiaye MD Primary Care Pr [facility] Reason for Visit * Reason Comments Routine Visit Encounter Details Date Type Department Care Team ([facility] st Contact Info) Description 02/12/2025 3:15 PM EDT Routine Obstetrics and Gynecology - [address] [phone] Dianne Mascorro, [facility] [address] [place], [place] Encounter for supervision of other normal in third trimester (Primary Dx); 33 weeks gestation of ; Obesity in ; Anemia during ; Marginal insertion of umbilical cord affecting management of mother; History of diet controlled gestational diabetes mellitus (GDM) Social History Tobacco Use Types Packs/Day Years Used Date Smoking Tobacco: Never Smokeless Tobacco: Never Alcohol Use Standard Drinks/Week Comments No 0 (1 standard drink = 0.6 oz pur e alcohol) Housing Instability Answer Date Recorde d Are you worried that in the next 2 months you may not have stable housing? No 11/08/2024 Food Access & Nutrition Answer Date Rec orded Do you have access to a vari ety of food including fruits and vegetables? Yes 11/08/2024 Access to Healthcare Answer Date Record ed Within the last 3 months, ho w many times did you visit the emergency department for your medical care? 0 11/08/2024 Health Literacy Answer Date Recorded How often do you need to hav e someone help you when you read instructions, pamphlets, or other written material from your doctor or pharmacy? Never 11/08/2024 Caregiver: How often do you need to have someone help you when you read instructions, pamphlets, or other written material from your doctor or pharmacy? Not on file 11/08/2024 Financial Risk Answer Date Recorded How hard is it for you to pa y for the very basics like food, housing, medical care, and air conditioning / heating? Somewhat hard 11/08/2024 Transportation Answer Date Recorded Has the lack of transportati on kept you from meetings, work, or from getting things needed for daily living? No Has the lack of transportati on kept you from medical appointments or from getting medications? No 11/08/2024 Social Isolation Answer Date Recorded How often do you feel lonely or isolated from th ose around you? Rarely 11/08/2024 Food Risk Answer Date Recorded Within the past 12 months we worried whether our food would run out before we got money to buy more. Never true 11/08/2024 Within the past 12 months th e food we bought just didn't last and we didn't have money to get more. Never true 11/08/2024 Dependent Care Answer Date Recorded Do you need help finding or paying for care for your loved ones. For example, children librarian or elderly care for an older adult? Patient declined 11/08/2024 Education Answer Date Recorded Do you think completing more education or training, like finishing a GED, going to college, or learning a trade, would be helpful for you? N/A 11/08/2024 Employment and Income Answer Date Recor ded During the last four weeks, have you been actively looking for work? No 11/08/2024 Living Situation Answer Date Recorded What is your living situation? Unrecognized valu e 11/08/2024 Estimated Date of Delivery Comme nts Yes 03/30/2025 Based on Ultraso und Sex and Gender Information Value Date Recorded Sex Assigned at Not on file Legal Sex Female 12:07 PM EST Gender Identity Not on file Sexual Orientation Not on file documented as of this encounter Last Filed Vital Signs Vital Sign Reading Time Taken Comments Blood Pressure 134/84 02/12/2025 3:07 PM EDT Pulse - - Temperature - - Respiratory Rate - - Oxygen Saturation - - Inhaled Oxygen Concentration - - Weight 109 kg (240 lb) 02/12/2025 3:07 PM EDT Height - - Body Mass Index 39.94 11/13/2024 1:25 PM EDT documented in this encounter Progress Notes * Dianne Mascorro CNM - 02/12/2025 3:15 PM EDT OB Visit: Vitals BP: 134/84 Weight: 109 kg (240 lb) Assessment Heart Rate: 140 Fundal Height (cm): 32 cm Movement: Present Presentation: Cephalic Vaginal Drainage Leaking Fluid: No 34 y.o. old female at 33w3d. Doing well. Appropriate FM. No LOF/VB/ctx. Taking PNV. Her only new concern is none. Had normal growth and fluid at 32 week US, results reviewed with pt today. 28 week labs reviewed, anemia in preg- taking iron. Otherwise healthy . Her BP is reviewed and is Normal. Signs and symptoms of labor reviewed including reasons to call triage. The patient does not require anesthesia consult. Problem List reviewed and updated. RTO 2 weeks. Dianne Mascorro CNM on 02/12/2025 at 3:35 PM EDT documented in this encounter Plan of Treatment Upcoming Encounters Date Type Department Care Team (Late st Contact Info) Description 02/27/2025 3:00 PM EDT Routine Obstetrics & Gynecology - [address] [phone] Dianne Mascorro CNM [address] [place] [address] 03/07/2025 3:30 PM EDT Routine Obstetrics and Gynecology - [address] [phone] Cherelle Shipman CNM [address] [place] [phone] 03/14/2025 3:30 PM EDT Routine Obstetrics & Gynecology - [address] [phone] Anrdea Chin, [facility] [address] [place] [address] 03/21/2025 3:30 PM EST Routine Obstetrics & Gynecology - [address] [phone] Andrea Chin, [facility] [address] [place] [address] 03/28/2025 3:30 PM EST Routine Obstetrics and Gynecology - [address] [phone] Cherelle Shipman [address] documented as of this encounter Visit Diagnoses Diagnosis Encounter for supervision of other normal in third trimester- Primary 33 weeks gestation of Obesity in Obesity complicating , childbirth, or the puerperium, unspecified as to episode of care or not applicable Anemia during Anemia, antepartum Marginal insertion of umbilical cord affecting management of mother History of diet controlled gestational diabetes mellitus (GDM) documented in this encounter Additional Health Concerns Assessment Noted Time PHQ-9 Depression Total Score: 0 12/25/19 10:20 AM EDT documented as of this encounter Care Teams Professor Of Archaeology Relationship Specialty Start Date End Date Ayo Ndiaye MD [address] [place] [address] PCP - General Internal Medicine 01/28/25 documented as of this encounter
--- NOTE | 2025-02-13 10:40 | A.OFFVIS_ITS ---
Intake Visit Reasons: gerd Allergies sulfamethoxazole (From Bactrim) Allergy (Unknown, Verified 02/13/25 10:40) Unknown trimethoprim (From Bactrim) Allergy (Unknown, Verified 02/13/25 10:40) Unknown codeine Adverse Reaction (Verified 02/13/25 10:40) Vomiting HPI HPI gerd: Details: 34 yr old f being seen for f/u She had EGD and colo for GERD and constipation 2020 she has been taking PPI since then due to active esophagitis and possible EoE which helps she is about 35 weeks and GERD is controlled with the PPI constipation is worse with but controlled with miralax she denies dysphagia no rectal bleeding EXAM: GENERAL: The patient is well developed and nontoxic. VITAL SIGNS:see workflow HEENT: Nonicteric sclerae, PERRLA, EOMI. Oropharynx clear. Moist mucous membranes. Conjunctivae appear well perfused. No thyroid mass. CHEST: Chest wall is nontender. HEART: Regular rate and rhythm without murmurs. LUNGS: Clear to auscultation bilaterally. ABDOMEN: Soft, positive bowel sounds, nontender, no organomegaly.no flank tenderness--distended consistent with SKIN: No rash, no excessive bruising, petechiae, or purpura. NEUROLOGIC: Cranial nerves II-XII intact without motor/sensory deficit. Psych: normal affect A/P: 1/ GERD, possible EoE controlled with PPI 2/ constipation, colonoscopy before was reassuring PLAN: 1/ cont with PPI, take MV daily as well 2/ can use miralax daily if needed, increase fiber and fluid intake 3/ [place] paperwork also filled out [facility] Medical History GERD (gastroesophageal reflux disease) Surgical History S/P tonsillectomy Social History Patient Tobacco Use Status: Never used Tobacco Assessment & Plan Assessment & Plan (1) GERD (gastroesophageal reflux disease): Code(s): K21.9 - Gastro-esophageal reflux disease without esophagitis Category: Medical Plan: as above Coding Level of Care Code Est Pt Level 3 (75698) Diagnoses GERD (gastroesophageal reflux disease) K21.9
--- OUTSIDE RECORDS SUMMARY | 2025-02-13 12:13 | XMS_ITS | Clinical Summary ---
Author Organization [facility] [address] [facility] Address [address] [facility] [place] [phone] Phone Care Team Providers Care Medical Sonographer Name Role Phone Ayo Ndiaye MD Primary Care Pr ovider Allergies Active Allergy Reactions Criticality Noted Date Comments Codeine Nausea And Vomiting Medium 02/07/2017 Sulfamethoxazole-Trimethoprim Nausea And Vomiting Medium 02/07/2017 Medications omeprazole (PriLOSEC) [address] capsule Take 40 mg by mouth 2 Times Daily. Active vit no.[id number] c ( Plus Vitamin-Mineral) 27 mg iron- 1 mg tabletIndication s:Missed menses Take 1 tablet by mouth 1 (one) time each day. 90 tablet 3 11/08/2024 Active ferrous sulfate 325 mg (65 mg elemental iron) tablet Take 1 tablet (325 mg total) by mouth every other day. 60 tablet 2 01/30/2025 Active Active Problems Problem Noted Date Diagnosed Date Anemia during 02/12/2025 Overview (02/12/2025): Taking iron Marginal insertion of umbili alf cord affecting management of mother 12/27/2024 Overview (02/12/2025): 32 week growth scan 02/04- 48%tile, normal fluid, F/U PRN History of diet controlled g estational diabetes mellitus (GDM) 11/08/2024 Overview (02/12/2025): Early GTT- WNL Repeat at 28 weeks- WNL Assessment & Plan (11/08/2024 2:30 PM EDT): 2023 Encounter for supervision of other normal , first trimester 11/08/2024 Overview (02/12/2025): 1. [facility] site: [facility]: [address] [place] [address] ([phone]) and [facility]: [address] [place] [address] ([phone]) 2. Delivery site: [facility] 3. Mobile Mommas: No 4. Dating criteria: LMP 5. Blood type: O-Positive 6. Genetic screening: Date: Result: Panorama: Declined Horizon: Declined Nuchal: Scheduled Survey: WNL MSAFP: 6. GBS: Date: 7. FOB name: Rajeev Palencia 8. Plans A. Epidural or other pain management - none B. Labor support identified - Rajeev Palencia C. Tdap - Date:03/08/2023 Flu - Date: D. Breast or Bottle feed: E. Baby's name - F. Circumcision - yes 9. Hospital Course: Obesity complicating childbirth 11/08/2024 Overview (01/29/2025): BMI- 39 HgbA1C and 1 hour GTT at initial labs ASA 162mg at 12 weeks until delivery Detailed anatomy ultrasound Repeat GTT 24-28 weeks if early is normal Pre-preg BMI 35-39.9: NST weekly at 37 weeks Pre-preg BMI >40: NST weekly at 34 weeks Pre-preg BMI >45: NST weekly at 32 weeks Growth US at 32 and 36 weeks for BMI >40 BMI of 50 by 28wks transfer to [facility] DVT prophylaxis- Lovenox if CS and BMI >35 Gastroesophageal reflux dise ase with esophagitis without hemorrhage 03/27/2021 Anxiety about health 09/28/2019 Estimated Date of Delivery Comme nts Yes 03/30/2025 Based on Ultraso und Encounters Date Type Department Care Team Description 02/12/2025 3:15 PM EDT Routine Obstetrics and Gynecology - [address] [phone] Dianne Mascorro CNM Encounter for supervision of other normal in third trimester (Primary Dx); 33 weeks gestation of ; Obesity in ; Anemia during ; Marginal insertion of umbilical cord affecting management of mother; History of diet controlled gestational diabetes mellitus (GDM) 02/05/2025 Telephone Obstetrics and Gynecology - [address] [phone] Cherelle Shipman CNM 02/04/2025 3:00 PM EDT Ancillary Procedure Maternal Medicine - [address] [phone] Marginal insertion of umbilical cord affecting management of mother in second trimester; Obesity affecting in second trimester; Other obesity due to excess calories affecting in second trimester 01/29/2025 3:30 PM EDT Routine Obstetrics and Gynecology - [address] [phone] Dianne Mascorro CNM Supervision of other normal , antepartum (Primary Dx); Marginal insertion of umbilical cord affecting management of mother; 31 weeks gestation of ; Obesity during ; History of diet controlled gestational diabetes mellitus (GDM) 12/31/2024 2:00 PM EDT Routine Obstetrics & Gynecology - [address] [phone] Andrea Chin CNM Encounter for supervision of other normal in second trimester (Primary Dx); 27 weeks gestation of 12/26/2024 3:00 PM EDT Ancillary Procedure Maternal Medicine - [address] [phone] Obesity affecting in second trimester; Encounter for screening for malformations; Encounter for screening for uncertain dates; Other obesity due to excess calories affecting in second trimester; Marginal insertion of umbilical cord affecting management of mother in second trimester 11/28/2024 3:15 PM EDT Initial Obstetrics and Gynecology - [address] [phone] Andrea Chin CNM 11/26/2024 9:00 AM EDT Ancillary Procedure Maternal Medicine - [place] [id number] [place], [place] [phone] Encounter for screening for nuchal translucency; Encounter for screening for malformations; Encounter for supervision of other normal , first trimester; Obesity affecting in second trimester; Other obesity due to excess calories affecting in second trimester 11/15/2024 Telephone Obstetrics and Gynecology - [address] [phone] Cherelle Shipman CNM 11/13/2024 1:30 PM EDT Clinical Support Obstetrics and Gynecology - [facility] [address] [place] [phone] Encounter for screening for nuchal translucency (Primary Dx); Encounter for screening for malformations; Encounter for screening of mother; Encounter for supervision of other normal , first trimester; Obesity complicating childbirth; History of diet controlled gestational diabetes mellitus (GDM) from Last 3 Months Immunizations Immunization Administration Dates Next Due DTaP (Infanrix) 6wks to less than 7yo ,06/02/1993,05/26/1992,1991,02/01/1992 MUbH-EYO-OTN (Pentacel) 2mo to less than 5yo 03/17/1993,05/26/1992,04/03/1992,1991 HPV, Quadrivalent 01/02/2009,09/02/2008,07/03/19 09 Hepatitis B (Ayrbgvb-X-Hjjyq , Recombivax HB-Adult) 19yo and older 04/24/2015,01/23/2015 HiB 03/17/1993, 3,04/03/1992,1991 IPV Inactivated polio (Ipol) 6wks and older 06/02/1993,05/26/1992,03/24/1992,1991 MMR, measles mumps and rubel la Live (Priorix; M-M-R II) 12mo and older 11/23/1996,03/17/1993 Moderna SARS-CoV-2 COVID-19, mRNA, LNP-S, preservative free 04/06/2021 PPD Test 03/07/2018 Td Tetanus diptheria (Tdvax) 7yo and older 11/21/2002 Tdap Tetanus diptheria acell ular pertussis (Boostrix; Adacel) 7yo and older 03/08/2023,08/31/2019,02/24/2017 Varicella live (Varivax) 12m o and older 05/01/2007,03/21/1998 Surgical History Surgery Date Site/Laterality Comments TONSILLECTOMY 2001 PROCEDURE: HISTORICAL TONSILLECTOMY ADENOIDECTOMY 2001 PROCEDURE: HISTORICAL ADENOIDECTOMY OTHER SURGICAL HISTORY 01/2021 PROCEDURE: [place] ENDOSCOPY UPPER SMALL INTESTINE W/BIOPSY COLONOSCOPY 01/2021 PROCEDURE: HISTORICAL COLONOSCOPY Medical History Medical History Date Comments Overweight 11/02/2016 DX:Overweight Asthma DX:Asthma; COMME NT: Childhood History of diet controlled gestational diabetes mellitus (GDM) 2022 DX:History of diet controlled gestational diabetes mellitus (GDM) Spinal headache complicating labor and delivery DX:Spinal headache complicat ing labor and delivery Family History Medical History Relation Name Comments No Known Problems Brother not commun iacting No Known Problems Daughter Nela Diabetes Father Type 2 Other: Cardiac Issues Father [place] aft er na assault Diabetes Maternal Grandfather Type 2 IDDM Diabetes Maternal Grandmother Type 2 IDDM Other: Bone CA Maternal Grandmother Breast cancer Mother had recurrence age 45 or 46 Cervical cancer Mother states recur rence age 57 and had hysterectomy Diabetes Mother Type 2 Other: B-12 Defeciency Mother Other: Smoker Mother Other: Cardiac Issues Paternal Grandfather [place] Other: Cardiac Issues Paternal Grandmother Unknown Type Other: dies of old age Paternal Grandmother No Known Problems Son Haroon Colon cancer Neg Hx Hypertension Neg Hx Pancreatic cancer Neg Hx Prostate cancer Neg Hx Uterine cancer Neg Hx Relation Name Status Comments Brother Alive Daughter Nela Alive Father Maternal Grandfather Alive Maternal Grandmother Mother Alive Paternal Grandfather Paternal Grandmother Son Haroon Alive Social History Tobacco Use Types Packs/Day Years [...] care for your loved ones. For example, child caregiver private home or elderly care for an older adult? [...] on file Sexual Orientation Not on file Obstetrics History Para Term AB IAB SAB Ectopic Multiple Livin g Live Births 3 2 2 0 0 0 2 2 Date Outcome GA Total Labor Labor/2nd/3rd Weight Sex Type Anes PTL Toya A1 A5 Name Clin 2019 Term 41w 3d 4281 g (151 oz) M Vag-V acuum Epidur al N Livin g Colgra m Complications: Intolera nce,Other Excessive Bleeding Delivery Location:[facility] 2023 Term 41w 0d 3827 g (135 oz) Vag-S pont None Livin g 8 9 Barla Chin CNM Complications:Gestational di abetes mellitus (GDM) Delivery Location:[facility] Comments:IOL post date s - GDMA1 Current Summary Episode Dates Number of Fetuses Estimated Date of Delivery 11/13/2024 - Present (02/13/2025) 03/30/2025 (set by Priscila Anglin MA on 11/28/2024 based on Ultrasound on 11/26/2024) Dating Summary Based On JENNIFER GA Diff Last Menstrual Period on 08/24/2024 (Exact Date) 05/31/2025 -8w6d Comment:irregular LMP, previ ous LMP Ultrasound on 11/26/2024 03/30/2025 Working GA:22w2d Alternate JENNIFER Entry 05/31/2025 -8w6d Comment:Date entered prior t o episode creation Overview and Plan Delivery Plans Post-Delivery Plans Planned delivery method:Vaginal Feeding intentions:Exclusive Planned anesthesia:None Circumcision req uested:Provider Performed Acceptable blood products:All Planned bi rth control:None Vitals Pregravid Weight Height TWG (As of 02/13/2025) Pregrav id BMI 107 kg (235 lb 8 oz) 1.651 m (65 ) 2.041 kg (4 lb 8 oz ) 39.19 Notes Progress Notes - Routine Pre - 02/12/2025 - GA:33w3d 02/12/2025 - 33w3d - Dianne Mascorro CNM OB Visit: Vitals BP: 134/84 Weight: 109 [...] CNM on 02/12/2025 at 3:35 PM EDT Progress Notes - Routine Pre - 01/29/2025 - GA:31w3d 01/29/2025 - 31 - Dianne Mascorro CNM OB Visit: Vitals BP: 103/72 Weight: 109 kg (240 lb) Assessment Heart Rate: 155 Fundal Height (cm): 32 cm Movement: Present Vaginal Drainage Leaking Fluid: No 34 y.o. old female at 31w3d. Doing well. Appropriate FM. No LOF/VB/ctx. Her only new concern is none. Taking PNV. Otherwise healthy . Her BP is reviewed and is Normal. Signs and symptoms of labor reviewed including reasons to call triage. 32 week growth US next week. 28 week labs done today and pending results. The patient does not require anesthesia consult. Problem List reviewed and updated. RTO 2 weeks. Clio Depression Scale: In the Past 7 Days I have been able to laugh and see the funny side of things.: As much as I always could I have looked forward with enjoyment to things.: As much as I ever did I have blamed myself unnecessarily when things went wrong.: No, never I have been anxious or worried for no good reason.: No, not at all I have felt scared or panicky for no good reason.: No, not at all Things have been getting on top of me.: No, I have been coping as well as ever I have been so unhappy that I have had difficulty sleeping.: Not at all I have felt sad or miserable.: No, not at all I have been so unhappy that I have been crying.: No, never The thought of harming myself has occurred to me.: Never Clio Depression Scale Total: 0 Dianne Mascorro CNM on 01/29/2025 at 4:10 PM EDT Progress Notes - Routine Pre sunil - 12/31/2024 - GA:27w2d 12/31/2024 - - Andrea Chin CNM Subjective Chief Complaint Patient presents with Routine Visit Alma Palencia is a 34 y.o. at 27w2d with a working estimated date of delivery of Estimated Date of Delivery: 03/30/25 by Last Menstrual Period who presents for a routine visit. She denies vaginal bleeding or leakage of fluid, denies uc. reports FM Objective Physical Exam Vitals BP: 116/88 (p 85) Weight: 109 kg (239 lb 11.2 oz) Fundal Height (cm): 30 cm (s>d has growth scheduled already and for reviewed of marginal cord) Heart Rate: 150 Ob check list: Tdap due: ask nv Flu vaccine due: n/a If glucose completed: due next visit Gbs: n/a Problem list reviewed. Assessment/Plan Encounter for supervision of other normal in second trimester (Primary) - CBC and differential; Future - Glucose tolerance test, 1h gestation; Future - Treponema pallidum antibody with reflex to RPR and particle agglutination; Future 27 weeks gestation of F/u routinely 3rd trim labs nv 12/31/2024 - 2d - Kesha Daniel MA Ob f/up Progress Notes - Initial Pre - 11/28/2024 - GA:22w4d 11/28/2024 - w4d - Andrea Chin CNM Subjective: Alma Palencia IUP 22w4d here for IP visit with Her is unplanned She and the of the baby are happy. Patient Patient's last menstrual period was 08/24/2024 (exact date).. She is certain of her LMP with regular cycles. is currently dated by lmp confirmed by first trim u/s She complains of denies She denies vaginal bleeding or cramping. Flu vaccine is not indicated at today's visit. Chief Complaint Patient presents with Initial Visit HPI Review of Systems Constitutional: Negative for activity change and appetite change. HENT: Negative for rhinorrhea and sore throat. Respiratory: Negative for cough, chest tightness and shortness of breath. Cardiovascular: Negative for chest pain and palpitations. Gastrointestinal: Negative for abdominal pain, constipation, diarrhea and vomiting. Endocrine: Negative. Genitourinary: Negative for difficulty urinating, dyspareunia, dysuria, frequency, menstrual problem, pelvic pain, urgency, vaginal bleeding, vaginal discharge and vaginal pain. Musculoskeletal: Negative for back pain, joint swelling, neck pain and neck stiffness. Skin: Negative. Breast: Negative for breast skin changes, nipple discharge, breast lump or mass and breast pain. Neurological: Negative for dizziness, syncope, speech difficulty, weakness, light-headedness, numbness and headaches. Psychiatric/Behavioral: Negative for behavioral problems, hallucinations and sleep disturbance. The patient is not nervous/anxious. Objective Physical Exam Constitutional: Appearance: Normal appearance. Cardiovascular: Rate and Rhythm: Normal rate and regular rhythm. Pulmonary: Effort: Pulmonary effort is normal. Breath sounds: Normal breath sounds. Chest: Chest wall: No mass, lacerations, deformity or swelling. Breasts: Right: Normal. No swelling, bleeding, inverted nipple or mass. Left: Normal. No swelling, bleeding, inverted nipple or mass. Abdominal: General: Abdomen is flat. Palpations: Abdomen is soft. Comments: Fht 140 Genitourinary: General: Normal vulva. Pubic Area: No rash. Labia: Right: No rash or tenderness. Left: No rash or tenderness. Urethra: No urethral pain or urethral lesion. Vagina: Normal. No signs of injury. No vaginal discharge, erythema or tenderness. Cervix: No cervical motion tenderness or discharge. Uterus: Not fixed and not tender. Adnexa: Right: No mass or tenderness. Left: No mass or tenderness. Musculoskeletal: Cervical back: Normal range of motion. Lymphadenopathy: Upper Body: Right upper body: No supraclavicular or axillary adenopathy. Left upper body: No supraclavicular or axillary adenopathy. Neurological: Mental Status: She is alert. Vitals: 11/28/24 1300 Pulse: 79 Resp: 14 PN Check List: Pap is not indicated at today's visit Std screening was collected at today's visit Panorama screening declined Depression screen negative level II high risk Anatomy ultrasound to be scheduled Assessment/Plan Encounter for supervision of other normal in second trimester (Primary) Late care 22 weeks gestation of Encounter for screening for maternal depression - Health and behavioral assessment; Future F/u routinely Glucose neg will consider repeat ngph4yl trim if s>d Progress Notes - Clinical Morrell pport - 11/13/2024 - GA:20w3d 11/13/2024 - 20w3d - Sally Corey RN Alma Palencia is a 33 y.o. old female at 11w4d. This is Unplanned. The patient feels happy about the . The FOB is happy. Patient's last menstrual period was Patient's last menstrual period was 08/24/2024 (exact date). (exact date)., which would make her currently 11w4d with an Estimated Date of Delivery: 05/31/25. She is certain of her date. An ultrasound has not been ordered to confirm dating Patient has significant history of: Gestational Diabetes Planned :No, but welcomed FOB name/age/phone #: Rajeev Palencia 1990 [phone] Lives with: Lives with 2 children Other Children: Support system in place:Yes Pets:Yes, cat friend and are changing litter box Occupation: pre fabricator FOB occupation: Space Sciences Director Pt doesn't want to find out the gender of the baby, want it to be surprise OB Past Medical History: Have you had or do you currently have: Diabetes? No Hypertension? No Heart disease, Mitral valve Prolapse, or Rheumatic fever? No An Autoimmune disease such as Lupus or Rheumatoid Arthritis? No Epilepsy, Seizures, or Spells? No Migraine Headaches? No Stroke or loss of function or sensation? No Additional Questions: Have you ever been treated for anxiety and/or depression? No Are you having problems with crying spells or loss of self-esteem? No Have you ever required psychiatric care? No Have you ever had hepatitis, liver disease or jaundice? No Have you ever been treated for blood clots in your veins, deep venous thrombosis, inflammation in the veins, thrombosis, phlebitis, pulmonary embolism or varicosities? No Have you had excessive bleeding after surgery or dental work? Yes, PPH 2020 extra meds Do you bleed more than other women after a cut or scratch? No Do you have a history of anemia? No Have you ever had Thyroid problems or taken Thyroid medications? No Do you have any other Endocrine Problems (ie. PCOS)? No Have you ever been in a major accident or suffered serious trauma? No Within the last year, has anyone hit, slapped, kicked or otherwise hurt you? No In the last year, has anyone forced you to have sex when you didn't want to? No Do you feel safe at home? Yes Have you ever received a blood transfusion? No Would you refuse a blood transfusion if a doctor judged to be medically necessary? No Would you rather than receive a blood transfusion? No If you answered yes to the above questions, is this for lutheran reasons? N/A Do you know what your blood type is or if you are Rh Negative? no, O positive Have you ever had abnormal antibodies in your blood? unknown Have you ever had asthma? Yes,, exercise induced, no inhaler use for over 20 yrs Have you every had Tuberculosis? No Have you ever had any breast problems? No Have you ever breast fed? Yes Have you ever had any gynecological surgical procedures such as cervical conization, LEEP procedure, Laser treatment, cryosurgery of the cervix or dilation and curettage, etc? No Have you had any other surgical procedures? No Have you ever been hospitalized overnight for a non-surgical reason excluding normal delivery? Yes, tonsillectomy and adenoidectomy Have you ever had anesthesia complications? No Have you ever had an abnormal pap smear? No Do you have a history of abnormalties of the uterus? No Did your mother take OK or any other hormones when she was with you? No Did it take more than one year to become ? No Have you ever been evaluated or treated for infertility? No Is there a history of medical problems in your family which you feel might adversely affect your health or ? No Do you have any other problems we have not asked you about which you feel may be important for us to know for this ? No Do you currently have any of the following symptoms since your last menstrual period: Abdominal pain, blood in the stool or urine, chest pain, shortness of breath, coughing or vomiting up blood, your heart racing or skipping beats, nausea and/or vomiting, pain on urination, or vaginal discharge or vaginal bleeding? Yes, [facility] Genetic Screening/Teratology Counseling- Includes patient, baby's father, or anyone in either family with: Patient's age 35 years or older as of estimated date of delivery No Thalassemia (Belarusian, Djiboutian, Mediterranean, or background): MCV less than 80 No Neural tube defect (Meningomyelocele, Spina bifida, or Anencephaly) No Congenital heart defect No Down syndrome No Dmitri-Sachs (Ashkenazi Worship, Cajun, Trinidadian [place]) No Doc disease (Ashkenazi Worship) No Familial dysautonomia (Ashkenazi Worship) No Sickle cell disease or trait () No Hemophilia or other blood disorders No Muscular dystrophy No Cystic fibrosis No Lawrence's chorea No Intellectual disability and/or autism No If yes, was the person tested for Fragile X? N/A Other inherited genetic or chromosomal disorder No Maternal metabolic disorder (eg. Type 1 diabetes, PKU) No Patient or baby's father had child with defects not listed above No Recurrent loss, or a stillbirth No Medications (including supplements, vitamins, herbs, or OTC drugs)/illicit/recreational drugs/alcohol since last menstrual period No If yes, agent(s) and strength/dosage: Any other No OB Infection History: Do you object to being tested for Hepatitis B? No Do you object to being tested for HIV? No Do you feel that you are at high risk for coming contact with the AIDS virus? No Have you ever been treated for tuberculosis? No Have you ever received the BCG vaccine? No Have you ever had a positive skin test for Tuberculosis? No Do you live with someone who has Tuberculosis? No Have you ever been exposed to Tuberculosis? No Do you have Genital Herpes? No Does your partner have Genital Herpes? No Have you had a rash or viral illness since your last period? No Have you ever had Gonorrhea, Chlamydia, Syphilis, Venereal Warts, Trichomoniasis, Pelvic Inflammatory Disease (PID) or any other sexually transmitted disease? No Do you know if you are a Group B Streptococcus Carrier? no Did you have the Chicken Pox/Varicella? no Were you vaccinated against Chicken Pox/Varicella? yes Have you had any other infectious diseases? No Alma Palencia has been instructed on the following: random urine drug screening RN workup and an initial urine drug screen has been ordered., She has been counseled regarding avoiding hazards, litter boxes, smoking, drug and alcohol use during Alma Palencia has also been informed of the chief creative officer provider recommendation for first trimester nuchal lucency testing to be performed during her . Alma Palencia has also been made aware of the time sensitive nature for this testing to be completed. . The patient now has a gestational age of 11w4d. The patient would be due for this testing prior to 14 weeks gestation which would be on 11/26/24 at 9 am in [place] Ethnicity Based Genetic Testing has been reviewed and the [employer] information sheet has been provided to the patient in their After Visit Summary. The patient was also advised that genetic testing may not be covered by all insurances. The patients states that they understand this information. The patient states that she has not had the genetic screening for Horizon 14 done in the past during a previous . Results were N/A. The patient has agreed that she does not want genetic testing for Horizon 14 The following Labs have been ordered: Obstetric Panel, HgA1c, Early Glucose Screen, HIV with verbal Consent, Hepatitis C, Varicella titer, Urine Culture, and UDS She is aware that her insurance may or may not cover Panorama and/or Horizon 14 test and discussed diaz only black for test(s) - info given today in her after visit summary . She would not like to proceed with testing. Discussed the benefit oh genetic screening, pt declines t this time, For Horizon Carrier Screening, if patient has [facility], [facility]: Not Applicable Electronically signed by: Sally Corey RN 11/13/24 1:28 PM EDT Last Filed Vital Signs Vital Sign Reading Time Taken Comments Blood Pressure 134/84 02/12/2025 3:07 PM EDT Pulse 79 11/28/2024 1:00 PM EDT Temperature - - Respiratory Rate 14 11/28/2024 1:00 PM EDT Oxygen Saturation - - Inhaled Oxygen Concentration - - Weight 109 kg (240 lb) 02/12/2025 3:07 PM EDT Height 165.1 cm (5' 5 ) 11/13/2024 1:25 PM EDT Body Mass Index 39.94 11/13/2024 1:25 PM EDT Plan of Treatment Upcoming Encounters Date Type Department Care Team (Late st Contact Info) Description 02/27/2025 3:00 PM EDT Routine Obstetrics & Gynecology [address] [phone] Dianne Mascorro, [address] 03/07/2025 3:30 PM EDT Routine Obstetrics and Gynecology [address] [phone] Cherelle Shipman [address] [address] 03/14/2025 3:30 PM EDT Routine Obstetrics & [address] [phone] Andrea Chin, [address] [address] 03/21/2025 3:30 PM EST Routine Obstetrics & Gynecology [address] [address] [place] [phone] Andrea Chin, CNM [address] [place] [address] 03/28/2025 3:30 PM EST Routine Obstetrics and Gynecology - [address] [phone] Cherelle Shipman, BLAS [address] [place] [address] Health Maintenance Due Date Last Done Comments Hepatitis B Vaccines (3 of 3 - 19+ 3-dose series) 07/24/2015 04/24/2015, 01/23/2015 Cholesterol Screening (Lipid Panel) 04/13/2022 11/02/2016 COVID-19 Vaccine ( - season) 2025 05/04/2021, 04/06/2021 Influenza Vaccine (#1) 2025 RSV Immunization Adult Patients (1 - Risk 1-dose series) 02/02/2025 Social Influencers of Health Screening 11/08/2025 11/08/2024 Cervical Cancer Screening: HPV 11/06/2027 11/05/2022 DTaP,Tdap,and Td Vaccines (10 - Td or Tdap) 03/08/2033 03/08/2023, 08/31/2019, 02/24/2017, Additional history exists HIB Vaccines Completed 03/17/1993, 06/1992, 05/26/1992, Additional history exists IPV Vaccines Completed 06/02/1993, 06/1992, 05/26/1992, Additional history exists HPV Vaccines Completed 01/02/2009, 08/15, 07/03/2008 HIV Screening Completed 11/13/2024, 11/05/2022 Hepatitis C Screening Completed 11/13/2024, 023 Depression Screening Completed 12/24/2024 Hepatitis A Vaccines Aged Out No long er eligible based on patient's age to complete this topic Meningococcal ACWY Vaccine Aged Out N o longer eligible based on patient's age to complete this topic Meningococcal B Vaccine Aged Out No l onger eligible based on patient's age to complete this topic Pneumococcal Vaccine: Pediatrics (0 to 5 Years) and At-Risk Patients (6 to 49 Years) Aged Out No longer eligible based on patient's age to complete this topic RSV Immunization Patients Under 20 months Aged Out No longer eligible based on patient's age to complete this topic Procedures Procedure Name Priority Date/Time Associated Diagnosis Comments US OB FOLLOWUP PER FETUS Routine 02/04/2025 3:57 PM EDT Marginal insertion of umbilical cord affecting management of mother in second trimester Obesity affecting in second trimester Other obesity due to excess calories affecting in second trimester CBC WITH AUTO DIFFERENTIAL Routine 01/29/2025 3:13 PM EDT Encounter for supervision of other normal in second trimester GTT GESTATIONAL 1 HOUR Routine 3:13 PM EDT Encounter for supervision of other normal in second trimester CBC AND DIFFERENTIAL Routine 01/29/2025 3:13 PM EDT Encounter for supervision of other normal in second trimester GLUCOSE TOLERANCE TEST, 1H GESTATION Routine 01/29/2025 3:13 PM EDT Encounter for supervision of other normal in second trimester TREPONEMA PALLIDUM ANTIBODY WITH REFLEX TO RPR AND PARTICLE AGGLUTINATION Routine 01/29/2025 3:13 PM EDT Encounter for supervision of other normal in second trimester US OB FOLLOWUP PER FETUS Routine 12/26/2024 3:24 PM EDT Marginal insertion of umbilical cord affecting management of mother in second trimester Obesity affecting in second trimester Encounter for screening for uncertain dates Other obesity due to excess calories affecting in second trimester CHLAMYDIA TRACHOMATIS AND NEISSERIA GONORRHOEAE PCR Routine 11/28/2024 3:35 PM EDT Venereal disease screening US OB DETAILED SINGLE OR FIRST GESTATION Routine 11/26/2024 9:59 AM EDT Encounter for screening for malformations Obesity affecting in second trimester Other obesity due to excess calories affecting in second trimester CBC WITH AUTO DIFFERENTIAL Routine 11/13/2024 3:25 PM EDT Encounter for screening of mother Encounter for supervision of other normal , first trimester GTT GESTATIONAL 1 HOUR Routine 3:25 PM EDT Encounter for supervision of other normal , first trimester Obesity complicating childbirth History of diet controlled gestational diabetes mellitus (GDM) VARICELLA ZOSTER ANTIBODY IGG Routine 11/13/2024 3:25 PM EDT Encounter for screening of mother Encounter for supervision of other normal , first trimester HEPATITIS B SURFACE ANTIGEN WITH CONFIRMATION Routine 11/13/2024 3:25 PM EDT Encounter for screening of mother Encounter for supervision of other normal , first trimester CBC AND DIFFERENTIAL Routine 11/13/2024 3:25 PM EDT Encounter for screening of mother Encounter for supervision of other normal , first trimester HEPATITIS C ANTIBODY Routine 11/13/2024 3:25 PM EDT Encounter for screening of mother Encounter for supervision of other normal , first trimester HIV 1, 2 ANTIBODY, P24 ANTIGEN WITH REFLEX TO DIFFERENTIATION Routine 11/13/2024 3:25 PM EDT Encounter for screening of mother Encounter for supervision of other normal , first trimester RUBELLA ANTIBODY IGG Routine 11/13/2024 3:25 PM EDT Encounter for screening of mother Encounter for supervision of other normal , first trimester TREPONEMA PALLIDUM ANTIBODY WITH REFLEX TO RPR AND PARTICLE AGGLUTINATION Routine 11/13/2024 3:25 PM EDT Encounter for screening of mother Encounter for supervision of other normal , first trimester TYPE AND SCREEN Routine 11/13/2024 3:25 PM EDT Encounter for screening of mother Encounter for supervision of other normal , first trimester GLUCOSE TOLERANCE TEST, 1H GESTATION Routine 11/13/2024 3:25 PM EDT Encounter for supervision of other normal , first trimester Obesity complicating childbirth History of diet controlled gestational diabetes mellitus (GDM) HEMOGLOBIN A1C Routine 11/13/2024 3:25 PM EDT Encounter for supervision of other normal , first trimester Obesity complicating childbirth History of diet controlled gestational diabetes mellitus (GDM) DRUG ABUSE SCREEN EXPANDED WITH REFLEX CONFIRMATION, URINE Routine 11/13/2024 2:51 PM EDT Encounter for screening of mother Encounter for supervision of other normal , first trimester CULTURE URINE Routine 11/13/2024 2:50 PM EDT Encounter for screening of mother Encounter for supervision of other normal , first trimester HM HPV Routine 11/05/2022 LIPID PANEL Routine 11/02/2016 from Last 3 Months or Most Recently Relevant to Health Maintenance Results * US OB Followup per Fetus (02/04/2025 3:57 PM EDT) Only the most recent of2 resultswithin the time period is included. Anatomical Region Laterality Modality Body Ultrasound 02/04/2025 3:02 PM EDT Narrative 02/05/2025 8:34 AM EDT OBSTETRICS REPORT (Signed Final 02/05/2025 08:34 am) PATIENT INFO: ID #: [id number] : [birth year] (34 yrs)(F) Name: ALMA PALENCIA Visit Date: 02/04/2025 03:02 pm PERFORMED BY: Attending: Whitney Nichols MD Performed By: Keith Pearson [facility] Referred By: Cherelle Shipman [facility] Ref. Address: [address] [place] [address] Location: [facility] SERVICE(S) PROVIDED: [place] [id number] INDICATIONS: Other malformation of placenta, second O43.192 trimester Obesity complicating , 3rdtrimester O99.213 Morbid obesity E66.01 32 weeks gestation of Z3A.32 TECHNIQUE/SCAN QUALITY: Technique: Transabdominal Scan Satisfactory Quality: OB HISTORY: : 3 Term: 2 Livin VITAL SIGNS: Weight (lb) Height BMI 240 5'5 39.93 EVALUATION: Number Of Fetuses: 1 Heart Rate(bpm): 142 Cardiac Activity: Observed Presentation: Cephalic Placenta Location: Posterior Appearance: Grade 2 Relation to CVX: No previa Amniotic Fluid NIKHIL FV: Within Normal Limits RLQ(cm) LUQ(cm) LLQ(cm) 2.41 2.54 3.13 NIKHIL Sum(cm) %Tile Largest Pocket(cm) 8.08 4 3.13 Comment: A >2 x 2 cm pocket of fluid is noted. BIOMETRY: BPD: 78.1 mm G.Age: 31w 2d 16 % HC: 301.8 mm G.Age: 33w 4d 45 % AC: 295.5 mm G.Age: 33w 4d 83 % FL: 59.2 mm G.Age: 30w 6d 8 % CI: 68.43 % 70 - 86 FL/HC: 19.6 % 19.1 - 21.3 HC/AC: 1.02 0.96 - 1.17 FL/BPD: 75.8 % 71 - 87 FL/AC: 20.0 % 20 - 24 Est. FW: 2000 gm 4 lb 7 oz 48 % GESTATIONAL AGE: LMP: 23w 3d Date: 08/24/24 JENNIFER: 05/31/25 / Today: 32w 2d JENNIFER: 03/30/25 Best: 32w 2d Det. By: U/S (11/26/24) JENNIFER: 03/30/25 STANDARD ANATOMY: Cranium: Normal appearance Stomach: Normal appearance Kidneys: Normal appearance Bladder: Normal appearance COMMENTS: Ms. Palencia is being seen for follow up assessment of growth for marginal cord insertion and class III obesity. - Her medical history is significant for anxiety. - Her obstetrical history is significant two term vaginal deliveries. - Aneuploidy screening was declined in the . - Ultrasound findings: The estimated weight is 2001 grams, at the 48th percentile. The amniotic fluid is appropriate for the gestational age. - Plan: No additional ultrasounds have been scheduled. Follow up as clinically indicated. Whitney Nichols MD Electronically Signed Final Report 02/05/2025 08:34 am Procedure Whitney Luna MD - 02/05/2025 OBSTETRICS REPORT (Signed Final 02/05/2025 08:34 am) PATIENT INFO: ID #: [id number] : [birth year] (34 yrs)(F) Name: ALMA PALENCIA Visit Date: 02/04/2025 03:02 pm PERFORMED BY: Attending: Whitney Nichols MD Performed By: Keith Pearson [facility] Referred By: Cherelle Shipman [facility] Ref. Address: [address] [place] [id number] Location: [facility] SERVICE(S) PROVIDED: [place] [id number] INDICATIONS: Other malformation of placenta, second O43.192 trimester Obesity complicating , 3rdtrimester O99.213 Morbid obesity E66.01 32 weeks gestation of Z3A.32 TECHNIQUE/SCAN QUALITY: Technique: Transabdominal Scan Satisfactory Quality: OB HISTORY: : 3 Term: 2 Livin VITAL SIGNS: Weight (lb) Height BMI 240 5'5 39.93 EVALUATION: Number Of Fetuses: 1 Heart Rate(bpm): 142 Cardiac Activity: Observed Presentation: Cephalic Placenta Location: Posterior Appearance: Grade 2 Relation to CVX: No previa Amniotic Fluid NIKHIL FV: Within Normal Limits RLQ(cm) LUQ(cm) LLQ(cm) 2.41 2.54 3.13 NIKHIL Sum(cm) %Tile Largest Pocket(cm) 8.08 4 3.13 Comment: A >2 x 2 cm pocket of fluid is noted. BIOMETRY: BPD: 78.1 mm G.Age: 31w 2d 16 % HC: 301.8 mm G.Age: 33w 4d 45 % AC: 295.5 mm G.Age: 33w 4d 83 % FL: 59.2 mm G.Age: 30w 6d 8 % CI: 68.43 % 70 - 86 FL/HC: 19.6 % 19.1 - 21.3 HC/AC: 1.02 0.96 - 1.17 FL/BPD: 75.8 % 71 - 87 FL/AC: 20.0 % 20 - 24 Est. FW: 2000 gm 4 lb 7 oz 48 % GESTATIONAL AGE: LMP: 23w 3d Date: 08/24/24 JENNIFER: 05/31/25 U/S Today: 32w 2d JENNIFER: 03/30/25 Best: 32w 2d Det. By: U/S (11/26/24) JENNIFER: 03/30/25 STANDARD ANATOMY: Cranium: Normal appearance Stomach: Normal appearance Kidneys: Normal appearance Bladder: Normal appearance COMMENTS: Ms. Palencia is being seen for follow up assessment of growth for marginal cord insertion and class III obesity. - Her medical history is significant for anxiety. - Her obstetrical history is significant two term vaginal deliveries. - Aneuploidy screening was declined in the . - Ultrasound findings: The estimated weight is 2001 grams, at the 48th percentile. The amniotic fluid is appropriate for the gestational age. - Plan: No additional ultrasounds have been scheduled. Follow up as clinically indicated. Whitney Nichols MD Electronically Signed Final Report 02/05/2025 08:34 am Cherelle Shimpan [facility] IMG OB US PROCEDURES Final Resu lt * Treponema pallidum antibody with reflex to RPR and particle agglutination (01/29/2025 3:13 PM EDT) Only the most recent of2 resultswithin the time period is included. T. Pallidum Antibodies Negative Negative LAB CHEMISTRY METHOD 01/29/2025 5:17 PM EDT [facility] Blood Venous blood specimen / Unknown Venipuncture / Unknown 01/29/2025 3:13 PM EDT 01/29/2025 3:13 PM EDT Andrea Chin [facility] BLOOD ORDERABLES Final Re sult Performing Organization Address [facility]/ZIP Co de Phone Number [facility] [address] [place] [address], * GTT gestational 1 hour (01/29/2025 3:13 PM EDT) Only the most recent of2 resultswithin the time period is included. [facility] Glucose, 1 HR Gestational 92 <140 mg/dL LAB CHEMISTRY METHOD 01/29/2025 4:59 PM EDT [facility] Blood Venous blood specimen / Unknown Venipuncture / Unknown 01/29/2025 3:13 PM EDT 01/29/2025 3:13 PM EDT Narrative [facility] - 01/29/2025 4:59 PM EDT Gestational Diabetes Challenge Reference Range: 1 hour Glucose <140 mg/dL [facility] LAB BLOOD ORDERABLES Final Re sult Performing Organization Address [facility] de Phone Number [facility] [address] [place] [address], * (ABNORMAL) CBC auto differential (01/29/2025 3:13 PM EDT) Only the most recent of2 resultswithin the time period is included. [facility] WBC 7.0 4.8 - 10.8 K/mcL LAB HEMETOLOGY METHOD 01/29/2025 4:48 PM EDT [facility] RBC 3.40(L) 3.80 - 4.80 M/mcL LAB HEMETOLOGY METHOD 01/29/2025 4:48 PM EDT [facility] Hemoglobin 10.1(L) 11.5 - 16.0 g/dL LAB HEMETOLOGY METHOD 01/29/2025 4:48 PM EDT [facility] Hematocrit 30.6(L) 35.0 - 47.0 % LAB HEMETOLOGY METHOD 01/29/2025 4:48 PM EDT [facility] MCV 89.2 79.0 - 98.0 FL LAB HEMETOLOGY METHOD 01/29/2025 4:48 PM EDT [facility] MCH 29.4 27.0 - 32.0 pcg LAB HEMETOLOGY METHOD 01/29/2025 4:48 PM EDT [facility] MCHC 33.0 32.0 - 37.0 g/dL LAB HEMETOLOGY METHOD 01/29/2025 4:48 PM EDT [facility] RDW 14.1 11.0 - 15.0 % LAB HEMETOLOGY METHOD 01/29/2025 4:48 PM EDT [facility] Platelets 316 130 - 400 K/mcL LAB HEMETOLOGY METHOD 01/29/2025 4:48 PM EDT [facility] MPV 9.4 7.0 - 11.0 FL LAB HEMETOLOGY METHOD 01/29/2025 4:48 PM EDT [facility] NRBC 0.0 <1.0 % LAB HEMETOLOGY METHOD 01/29/2025 4:48 PM EDT [facility] NRBC Absolute 0.00 <0.10 K/mcL LAB HEMETOLOGY METHOD 01/29/2025 4:48 PM EDT [facility] Neutrophils Relative 70.4 % LAB HEMETOLOGY METHOD 01/29/2025 4:48 PM EDT [facility] Lymphocytes Relative 22.2 % LAB HEMETOLOGY METHOD 01/29/2025 4:48 PM EDT [facility] Monocytes Relative 5.3 % LAB HEMETOLOGY METHOD 01/29/2025 4:48 PM EDT [facility] Eosinophils Relative 1.4 % LAB HEMETOLOGY METHOD 01/29/2025 4:48 PM EDT [facility] Basophils Relative 0.3 % LAB HEMETOLOGY METHOD 01/29/2025 4:48 PM EDT [facility] Immature Granulocytes Relative 0.4 % LAB HEMETOLOGY METHOD 01/29/2025 4:48 PM EDT [facility] Neutrophils Absolute 4.94 1.50 - 7.00 K/mcL LAB HEMETOLOGY METHOD 01/29/2025 4:48 PM EDT [facility] Lymphocytes Absolute 1.56 1.00 - 5.00 K/mcL LAB HEMETOLOGY METHOD 01/29/2025 4:48 PM EDT [facility] Monocytes Absolute 0.37 0.20 - 1.00 K/mcL LAB HEMETOLOGY METHOD 01/29/2025 4:48 PM EDT [facility] Eosinophils Absolute 0.10 0.00 - 0.50 K/mcL LAB HEMETOLOGY METHOD 01/29/2025 4:48 PM EDT [facility] Basophils Absolute 0.02 0.00 - 0.20 K/mcL LAB HEMETOLOGY METHOD 01/29/2025 4:48 PM EDT [facility] Immature Granulocytes Absolute 0.03 0.00 - 0.03 K/mcL LAB HEMETOLOGY METHOD 01/29/2025 4:48 PM EDT [facility] Blood Venous blood specimen / Unknown Venipuncture / Unknown 01/29/2025 3:13 PM EDT 01/29/2025 3:13 PM EDT us Andrea Chin CNM LAB BLOOD ORDERABLES Final Re sult [facility] [address] [place] [address], * Chlamydia trachomatis and Neisseria gonorrhoeae molecular study (11/28/2024 3:35 PM EDT) Neisseria gonorrhoeae PCR Negative Negative LAB MOLECULAR DIAGNOSTICS METHOD 11/29/2024 10:35 AM EDT [facility] Chlamydia trachomatis PCR Negative Negative LAB MOLECULAR DIAGNOSTICS METHOD 11/29/2024 10:35 AM EDT [facility] Swab Vaginal structure / Unknown Non-blood Collection / Unknown 11/28/2024 3:35 PM EDT 11/28/2024 3:35 PM EDT us Andrea OHARA LAB MICROBIOLOGY - GENERAL OR DERABLES Final Result [facility] ([facility]) [facility] [address] [place] [address], [place] [phone] * US OB Detailed Single or First Gestation (11/26/2024 9:59 AM EDT) Anatomical Region Laterality Modality Body Ultrasound 11/26/2024 9:16 AM EDT Narrative 11/26/2024 12:31 PM EDT OBSTETRICS REPORT (Signed Final 11/26/2024 12:31 pm) PATIENT INFO: ID #: [id number] : [birth year] (34 yrs)(F) Name: ALMA PALENCIA Visit Date: 11/26/2024 09:16 am PERFORMED BY: Attending: Kathleen Macario MD Performed By: Keith Pearson RDME Referred By: Cherelle Shipman [facility] Ref. Address: [address] [place] [address] Location: [facility] SERVICE(S) PROVIDED: US Level II complete (Targeted OB) [address] INDICATIONS: Obesity complicating , 2nd O99.212 trimester Morbid obesity E66.01 Encounter for screening for Z36.3 malformations Encounter for screening for Z36.87 uncertain dates 22 weeks gestation of Z3A.22 TECHNIQUE/SCAN QUALITY: Technique: Transabdominal Scan Satisfactory Quality: OB HISTORY: : 3 Term: 2 Livin VITAL SIGNS: Weight (lb) Height BMI 233 5'5 38.77 EVALUATION: Number Of Fetuses: 1 Cardiac Activity: Observed Presentation: Cephalic Placenta Location: Posterior Appearance: Grade 1 Relation to CVX: No previa Cord Insertion: Suboptimal views Amniotic Fluid NIKHIL FV: Within Normal Limits Comment: A >2 x 2 cm pocket of fluid is noted. BIOMETRY: BPD: 52.4 mm G.Age: 21w 6d 32 % HC: 200.6 mm G.Age: 22w 1d 34 % AC: 187 mm G.Age: 23w 3d 79 % FL: 36.1 mm G.Age: 21w 3d 15 % HUM: 35 mm G.Age: 22w 0d 41 % CER: 24.5 mm G.Age: 22w 4d 53 % NB: 8.68 mm 77 % > 1 MoM LV: 5.9 mm CM: 6 mm OOD: 35.5 mm G.Age: 21w 1d 43 % CI: 69.52 % 70 - 86 FL/HC: 18.0 % 18.4 - 20.2 HC/AC: 1.07 1.06 - 1.25 FL/BPD: 68.9 % 71 - 87 FL/AC: 19.3 % 20 - 24 Est. FW: 511 gm 1 lb 2 oz 56 % GESTATIONAL AGE: LMP: 13w 3d Date: 08/24/24 JENNIFER: 05/31/25 U/S Today: 22w 2d JENNIFER: 03/30/25 Best: 22w 2d Det. By: U/S (11/26/24) JENNIFER: 03/30/25 DETAILED ANATOMY: Head / Neck Cranial Vault: Normal appearance Cavum Septi Pellucidi: Normal appearance Parenchyma: Normal appearance R. Lat. Ventricle: Normal appearance L. Lat. Ventricle: Normal appearance Corpus Callosum: Normal appearance Midline Falx: Normal appearance R. Choroid Plexus: Normal appearance L. Choroid Plexus.: Normal appearance Cerebellum: Normal appearance CCisterna Magna: Normal appearance Nuchal Fold: Normal appearance Neck: Normal appearance Face Face Profile: Normal appearance Nasal Bone: Normal appearance Coronal Face: Normal appearance Lips: Normal appearance Nose: Normal appearance Lenses: Normal appearance Orbits: Normal appearance Palate: Suboptimal views Heart Cardiac Activity: Normal appearance Cardiac Rhythm: Normal appearance 4 Chamber View: Suboptimal views R. Outflow Tract: Suboptimal views L. Outflow Tract: Suboptimal views Interventr. Septum: Normal appearance 3 Vessel View: Normal appearance 3V Trachea View: Normal appearance Cardiac Situs: Normal appearance Aortic Arch: Normal appearance SVC: Normal appearance IVC: Normal appearance Ductal Arch: Normal appearance Crossing G. Ves.: Normal appearance Thorax Lungs: Normal appearance Cardiac [place]: Normal appearance Diaphragm: Normal appearance Thoracic Contour: Normal appearance Abdomen Situs: Normal appearance Stomach: Normal appearance Bowel: Normal appearance Liver: Normal appearance Abdominal Wall: Normal appearance Urinary Bladder: Normal appearance R. Kidney: Normal appearance L. Kidney: Normal appearance R. Renal Artery: Normal appearance L. Renal Artery: Normal appearance Umbilical Cord: Normal Appearance UC Vessel Num.: Normal 3VC Cord Insertion: Normal appearance Spine Cervical: Normal appearance Thoracic: Normal appearance Lumbar: Normal appearance Sacral: Normal appearance Shape / Curvature: Normal appearance Over. Soft Tissue: Normal appearance Vertebral Body: Normal appearance Extremities R. Humerus: Normal appearance L. Humerus: Normal appearance R. Forearm: Normal appearance L. Forearm: Normal appearance R. Hand: Normal appearance L. Hand: Normal appearance R. Femur: Normal appearance L. Femur: Normal appearance R. Lower Leg: Normal appearance L. Lower Leg: Normal appearance R. Foot: Normal appearance L. Foot: Normal appearance Other Genitalia: Male CERVIX UTERUS ADNEXA: Cervix Within Normal Limits Abdominally Right Ovary Size(cm) 2.68 x 2.2 x 2.16 Vol(ml): 6.67 Normal in size and appearance. It is found between the uterus and the pelvic sidewall. Left Ovary Size(cm) 2.85 x 2.65 x 2.05 Vol(ml): 8.11 Normal in size and appearance. It is found between the uterus and the pelvic sidewall. COMMENTS: Ms. Palencia is being seen for first trimester screening for aneuploidy. biometry is consistent with 22 weeks therefore a detailed ultrasound was performed for a BMI of 38. - Her medical history is significant for anxiety. - Her obstetrical history is significant two term vaginal deliveries. Her last was complicated by gestational diabetes. - Aneuploidy screening was declined in the . Ultrasound findings: The biometry measures 9 weeks ahead of dating based on LMP with a gestational age of 22 weeks and 2 days. The EDC is established by today's ultrasound and is 03/30/25. VIews of the heart and placental cord insertion are suboptimal. The remainder of the anatomy is appropriate for the gestational age. - The patient declined vaginal ultrasound to assess cervical length for risk of . - Plan: She has been scheduled to return in 4 weeks to complete the detailed ultrasound and confirm the EDC. Kathleen Macario MD Electronically Signed Final Report 11/26/2024 12:31 pm Procedure Kathleen Dinero MD - 11/26/2024 OBSTETRICS REPORT (Signed Final 11/26/2024 12:31 pm) PATIENT INFO: ID #: [id number] : [birth year] (34 yrs)(F) Name: ALMA PALENCIA Visit Date: 11/26/2024 09:16 am PERFORMED BY: Attending: Kathleen Macario MD Performed By: Keith Pearson RDMS Referred By: Cherelle OHARA Ref. Address: [address] [place] [address] Location: [facility] SERVICE(S) PROVIDED: US Level II complete (Targeted OB) 39534 INDICATIONS: Obesity complicating , 2nd O99.212 trimester Morbid obesity E66.01 Encounter for screening for Z36.3 malformations Encounter for screening for Z36.87 uncertain dates 22 weeks gestation of Z3A.22 TECHNIQUE/SCAN QUALITY: Technique: Transabdominal Scan Satisfactory Quality: OB HISTORY: : 3 Term: 2 Livin VITAL SIGNS: Weight (lb) Height BMI 233 5'5 38.77 EVALUATION: Number Of Fetuses: 1 Cardiac Activity: Observed Presentation: Cephalic Placenta Location: Posterior Appearance: Grade 1 Relation to CVX: No previa Cord Insertion: Suboptimal views Amniotic Fluid NIKHIL FV: Within Normal Limits Comment: A >2 x 2 cm pocket of fluid is noted. BIOMETRY: BPD: 52.4 mm G.Age: 21w 6d 32 % HC: 200.6 mm G.Age: 22w 1d 34 % AC: 187 mm G.Age: 23w 3d 79 % FL: 36.1 mm G.Age: 21w 3d 15 % HUM: 35 mm G.Age: 22w 0d 41 % CER: 24.5 mm G.Age: 22w 4d 53 % NB: 8.68 mm 77 % > 1 MoM LV: 5.9 mm CM: 6 mm OOD: 35.5 mm G.Age: 21w 1d 43 % CI: 69.52 % 70 - 86 FL/HC: 18.0 % 18.4 - 20.2 HC/AC: 1.07 1.06 - 1.25 FL/BPD: 68.9 % 71 - 87 FL/AC: 19.3 % 20 - 24 Est. FW: 511 gm 1 lb 2 oz 56 % GESTATIONAL AGE: LMP: 13w 3d Date: 08/24/24 JENNIFER: 05/31/25 U/S Today: 22w 2d JENNIFER: 03/30/25 Best: 22w 2d Det. By: U/S (11/26/24) JENNIFER: 03/30/25 DETAILED ANATOMY: Head / Neck Cranial Vault: Normal appearance Cavum Septi Pellucidi: Normal appearance Parenchyma: Normal appearance R. Lat. Ventricle: Normal appearance L. Lat. Ventricle: Normal appearance Corpus Callosum: Normal appearance Midline Falx: Normal appearance R. Choroid Plexus: Normal appearance L. Choroid Plexus.: Normal appearance Cerebellum: Normal appearance CCisterna Magna: Normal appearance Nuchal Fold: Normal appearance Neck: Normal appearance Face Face Profile: Normal appearance Nasal Bone: Normal appearance Coronal Face: Normal appearance Lips: Normal appearance Nose: Normal appearance Lenses: Normal appearance Orbits: Normal appearance Palate: Suboptimal views Heart Cardiac Activity: Normal appearance Cardiac Rhythm: Normal appearance 4 Chamber View: Suboptimal views R. Outflow Tract: Suboptimal views L. Outflow Tract: Suboptimal views Interventr. Septum: Normal appearance 3 Vessel View: Normal appearance 3V Trachea View: Normal appearance Cardiac Situs: Normal appearance Aortic Arch: Normal appearance SVC: Normal appearance IVC: Normal appearance Ductal Arch: Normal appearance Crossing G. Ves.: Normal appearance Thorax Lungs: Normal appearance Cardiac [place]: Normal appearance Diaphragm: Normal appearance Thoracic Contour: Normal appearance Abdomen Situs: Normal appearance Stomach: Normal appearance Bowel: Normal appearance Liver: Normal appearance Abdominal Wall: Normal appearance Urinary Bladder: Normal appearance R. Kidney: Normal appearance L. Kidney: Normal appearance R. Renal Artery: Normal appearance L. Renal Artery: Normal appearance Umbilical Cord: Normal Appearance UC Vessel Num.: Normal 3VC Cord Insertion: Normal appearance Spine Cervical: Normal appearance Thoracic: Normal appearance Lumbar: Normal appearance Sacral: Normal appearance Shape / Curvature: Normal appearance Over. Soft Tissue: Normal appearance Vertebral Body: Normal appearance Extremities R. Humerus: Normal appearance L. Humerus: Normal appearance R. Forearm: Normal appearance L. Forearm: Normal appearance R. Hand: Normal appearance L. Hand: Normal appearance R. Femur: Normal appearance L. Femur: Normal appearance R. Lower Leg: Normal appearance L. Lower Leg: Normal appearance R. Foot: Normal appearance L. Foot: Normal appearance Other Genitalia: Male CERVIX UTERUS ADNEXA: Cervix Within Normal Limits Abdominally Right Ovary Size(cm) 2.68 x 2.2 x 2.16 Vol(ml): 6.67 Normal in size and appearance. It is found between the uterus and the pelvic sidewall. Left Ovary Size(cm) 2.85 x 2.65 x 2.05 Vol(ml): 8.11 Normal in size and appearance. It is found between the uterus and the pelvic sidewall. COMMENTS: Ms. Palencia is being seen for first trimester screening for aneuploidy. biometry is consistent with 22 weeks therefore a detailed ultrasound was performed for a BMI of 38. - Her medical history is significant for anxiety. - Her obstetrical history is significant two term vaginal deliveries. Her last was complicated by gestational diabetes. - Aneuploidy screening was declined in the . Ultrasound findings: The biometry measures 9 weeks ahead of dating based on LMP with a gestational age of 22 weeks and 2 days. The EDC is established by today's ultrasound and is 03/30/25. VIews of the heart and placental cord insertion are suboptimal. The remainder of the anatomy is appropriate for the gestational age. - The patient declined vaginal ultrasound to assess cervical length for risk of . - Plan: She has been scheduled to return in 4 weeks to complete the detailed ultrasound and confirm the EDC. Kathleen Macario MD Electronically Signed Final Report 11/26/2024 12:31 pm Cherelle Shipman CNM IMG OB US PROCEDURES Final Resu lt * Hepatitis C antibody (11/13/2024 3:25 PM EDT) Hepatitis C Antibody Negative Negative LAB CHEMISTRY METHOD 11/13/2024 7:23 PM EDT [facility] Blood Venous blood specimen / Unknown Venipuncture / Unknown 11/13/2024 3:25 PM EDT 11/13/2024 3:25 PM EDT Cherelle OHARA LAB BLOOD ORDERABLES Final Resu lt [facility] [address] [place] [address], [place] [phone] * HIV 1,2 antibody, p24 antigen with reflex to differentiation (11/13/2024 3:25 PM EDT) [facility] HIV Combo AB/AG Negative Negative LAB CHEMISTRY METHOD 11/13/2024 7:23 PM EDT [facility] Blood Venous blood specimen / Unknown Venipuncture / Unknown 11/13/2024 3:25 PM EDT 11/13/2024 3:25 PM EDT Narrative [facility] - 11/13/2024 7:23 PM EDT This assay is a 4th generation assay allowing for earlier detection of HIV infection by detecting the presence of the HIV-1 p24 antigen as well as the traditional antibodies to HIV type 1 (including group O) and type 2. Use of a 4th generation assay is the current CDC recommendation for HIV screening. Cherelle OHARA LAB BLOOD ORDERABLES Final Resu lt Performing Organization Address [facility]/ZIP Co de Phone Number [facility] [address] [place] [address], [place] [phone] * Hepatitis B surface antigen with reflex to confirmation (11/13/2024 3:25 PM EDT) Pathologist [facility] Hepatitis B Surface Ag Negative Negative LAB CHEMISTRY METHOD 11/13/2024 6:55 PM EDT [facility] Blood Venous blood specimen / Unknown Venipuncture / Unknown 11/13/2024 3:25 PM EDT 11/13/2024 3:25 PM EDT Narrative [facility] - 11/13/2024 6:55 PM EDT Over the counter supplements containing high doses of biotin may interfere with this assay. If interference is suspected, patients shoud be retested after refraining from biotin supplements for 72 hours. Cherelle OHARA LAB BLOOD ORDERABLES Final Resu lt Performing Organization Address [facility] Co de Phone Number [facility] [address] [place] [address], [place] [phone] * Rubella antibody IgG (11/13/2024 3:25 PM EDT) [facility] Rubella IgG Quant 39.3 >=10.0 I Unit/mL LAB CHEMISTRY METHOD 11/13/2024 6:52 PM EDT [facility] Rubella IgG Antibody Interp Positive Positive LAB CHEMISTRY METHOD 11/13/2024 6:52 PM EDT [facility] Blood Venous blood specimen / Unknown Venipuncture / Unknown 11/13/2024 3:25 PM EDT 11/13/2024 3:25 PM EDT Cherelle OHARA LAB BLOOD ORDERABLES Final Resu lt Performing Organization Address [facility]/ZIP Co de Phone Number [facility] [address] [place] [address], [place] [phone] * Type and screen (11/13/2024 3:25 PM EDT) ABO Group O 11/14/2024 11:22 AM EDT [facility] Rh Type Positive 11/14/2024 11:22 AM EDT [facility] Antibody Screen Negative 11/14/2024 11:22 AM EDT [facility] Blood Venous blood specimen / Unknown Venipuncture / Unknown 11/13/2024 3:25 PM EDT 11/13/2024 3:25 PM EDT Cherelle Shipman CNM LAB BLOOD BANK TEST ORDERABLES Final Result Performing Organization Address City/[facility]/ZIP Co de Phone Number [facility] [address] [place] [address], * Varicella zoster antibody IgG (11/13/2024 3:25 PM EDT) Varicella IgG Positive Positive LAB CHEMISTRY METHOD 11/14/2024 7:43 AM EDT [facility] Varicella Zoster IgG 9.20 >=1.00 S/CO LAB CHEMISTRY METHOD 11/14/2024 7:43 AM EDT [facility] Blood Venous blood specimen / Unknown Venipuncture / Unknown 11/13/2024 3:25 PM EDT 11/13/2024 3:25 PM EDT Narrative [facility] - 11/14/2024 7:43 AM EDT Interpretation >= 1.00 S/CO is considered to be consistent with Immunity Cherelle Shipman CNM LAB BLOOD ORDERABLES Final Resu lt [facility] [address] [place] [address], [place] [phone] * Hemoglobin A1c (11/13/2024 3:25 PM EDT) Hemoglobin A1C 5.2 <6.5 % LAB CHEMISTRY METHOD 11/13/2024 9:57 PM EDT [facility] Mean Bld Glu Estim. 103 mg/dL LAB CHEMISTRY METHOD 11/13/2024 9:57 PM EDT [facility] Blood Venous blood specimen / Unknown Venipuncture / Unknown 11/13/2024 3:25 PM EDT 11/13/2024 3:25 PM EDT Cherelle Shipman CNM LAB BLOOD ORDERABLES Final Resu lt [facility] [address] [place] [address], * Drug abuse screen expanded with reflex confirmation, urine (11/13/2024 2:51 PM EDT) Pathologist [facility] Amphetamine Screen, Ur Negative Negative LAB CHEMISTRY METHOD 11/13/2024 7:23 PM EDT [facility] Comment:Certain OTC medicati ons containing ephedrine, phenylephrine, pseudoephedrine and phenylpropanolamine can cause false positive results. Barbiturate Screen, Ur Negative Negative LAB CHEMISTRY METHOD 11/13/2024 7:23 PM EDT [facility] Benzodiazepine Screen, Ur Negative Negative LAB CHEMISTRY METHOD 11/13/2024 7:23 PM EDT [facility] Cocaine Screen, Ur Negative Negative LAB CHEMISTRY METHOD 11/13/2024 7:23 PM EDT [facility] Opiate Screen, Ur Negative Negative LAB CHEMISTRY METHOD 11/13/2024 7:23 PM EDT [facility] Cannabinoid (THC) Screen, Ur Negative Negative LAB CHEMISTRY METHOD 11/13/2024 7:23 PM EDT [facility] Comment:Specimens from patie nts taking pantoprazole sodium (Protonix) have been shown to produce false positive results. Fentanyl, Ur Negative Negative LAB CHEMISTRY METHOD 11/13/2024 7:23 PM EDT [facility] Oxycodone Screen, Ur Negative Negative LAB CHEMISTRY METHOD 11/13/2024 7:23 PM EDT [facility] Urine Urine specimen obtained by clean catch procedure / Unknown Non-blood Collection / Unknown 11/13/2024 2:51 PM EDT 11/13/2024 2:51 PM EDT Narrative [facility] - 11/13/2024 7:23 PM EDT Assay cutoffs: Amphetamines 1000 ng/mL Barbiturates 200 ng/mL Benzodiazepines 200 ng/mL Cocaine 300 ng/mL Fentanyl 1 ng/mL Opiates 300 ng/mL Oxycodone 100 ng/mL THC 50 ng/mL Semi-quantitative assay for screening purposes only. Unconfirmed screening result should not be used for non-medical purposes. *POSITIVE RESULTS ARE AUTOMATICALLY SENT FOR ALTERNATE METHOD CONFIRMATION* Cherelle OHARA LAB URINE ORDERABLES Final Resu lt Performing Organization Address City/[facility]/ZIP Co de Phone Number [facility] [address] [place] [address], [place] [phone] * Culture urine (11/13/2024 2:50 PM EDT) Culture, Urine 10,000-49,000 CFU/mL Mixed urogenital ar, no uropathogens present. Suggest repeat specimen if clinically indicated. 11/14/2024 10:01 AM EDT [facility] Urine Urine specimen obtained by clean catch procedure / Unknown Non-blood Collection / Unknown 11/13/2024 2:50 PM EDT 11/13/2024 2:50 PM EDT Cherelle OHARA LAB MICROBIOLOGY - GENERAL JOE SWARTZ Final Result [facility] [address] [place] [address], [place] [phone] * Cervical Cancer Screening: HPV (11/05/2022) Pathologist [facility] Cervical Cancer Screening: HPV Abstracted ,Negative Historical Provider HEALTH MAINTENANCE Final Result * (ABNORMAL) Lipid panel (11/02/2016) Pathologist [facility] LDL/HDL Ratio 4 0 - 4 Triglycerides 96 0 - 150 mg/dL Cholesterol 179 0 - 200 mg/dL HDL 41 >=40 mg/dL LDL Cholesterol 119(A) 0 - 100 mg/dL Blood Venous blood specimen / Unknown Historical Provider LAB BLOOD ORDERABLES Paola l Result from Last 3 Months or Most Recently Relevant to Health Maintenance Insurance [facility] Care Teams Medical Sonographer Relationship Specialty Start Date End Date Ayo Ndiaye MD [address] [place] [phone] PCP - General Internal Medicine 01/28/25
== END 2025-02-13 13:48 | disposition home or self-care (01) ==
LOC: HO.HGI 10:38
PROVIDERS: Visit Provider Internal Medicine Gastroenterology
DX: K21.9 Gastro-esophageal reflux disease without esophagitis (principal)
CPT/HCPCS: 99213